=== PATIENT | male | born 1955 | race Caucasian/White ===

== ENCOUNTER 2018-11-24 17:47 | Inpatient (IN) | payer OTHER ==
[~2018-11-24] VITALS: Ht 182.8 cm; Wt 97.5 kg
--- NOTE | ~2018-11-24 | PR ---
[place], [place] PROGRESS NOTE NAME: EDMUND AARON UNIT #: [id number] ROOM: 316 DOCTOR: BOBBY TODD MD BIRTHDATE: [birth year] DOS: 11/26/2018 CHIEF COMPLAINT: "Oh Dr. Todd, the voices are so bad, I see Abel Aaron coming at me. He is telling me to kill myself." SUMMARY OF THE VISIT: The patient was interviewed in the group therapy room where he was sitting on a one-to-one basis with the nurse. He immediately began sobbing as he talked to me stating that the voices have intensified and are tormenting him. He did get relief with the p.r.n. Geodon and it did allow him to sleep more restfully, but once he woke up, the voices reoccurred at a very high level. He did request another Geodon injection to try to at least give him some relief. MENTAL STATUS: He is alert and oriented with significant depression noted and anxiety. He is grossly psychotic and experiencing command auditory hallucinations. The voices are telling him to kill himself and he fears that he will follow the voices. PLAN: At this point is to increase the Fanapt to 4 mg b.i.d. as I rapidly titrate him to therapeutic. I will go ahead and give him Geodon 20 mg IM now in an effort to give him some relief. We will support and monitor and maintain him on 1:1 at this time as he is at a substantial risk of harm to engage in individual and llanes milieu activity, returning to the least restrictive environment when psychiatrically stable. BOBBY TODD MD CM:PNTRANS [id number] BOBBY TODD MD 11/26/18 1426 interface
--- NOTE | ~2018-11-24 | PR ---
[place], [place] PROGRESS NOTE NAME: ED[facility]UND [facility]ES [id number] UNIT #: [id number] ROOM: 316 DOCTOR: BOBBY JASSO MD BIRTHDATE: [birth year] DOS: 12/01/2018 INTERVAL NOTE CHIEF COMPLAINT: "Oh Dr. Jasso, I just don't like what's happening here." SUMMARY OF THE VISIT: The patient was interviewed in the quiet room. He had been starting to walk the floor with physical therapy. He was actually out of his room, eating breakfast in the dining area, interacting with other peers. On a negative note, he reports he is upset with the shift engineer and voiced multiple complaints towards them. He did also make some valid points regarding his room being too cold and I discussed with him options that we have here on the unit to meet his needs more effectively. On a positive note, he is certainly out and about more. He was well dressed and groomed. He was more interactive. He was spontaneous. He did not seem to be outwardly as distraught. He is tolerating the current medicines well and I did not see any extrapyramidal symptoms, tardive dyskinesia, sedation or somnolence. MENTAL STATUS: He is alert and oriented. Mood does seem to be somewhat more euthymic. Affect is more appropriate. There was no jessica or hypomania. He continues to endorse positive hallucinations, but does not seem to be outwardly as distraught by them. PLAN: I will go ahead and discontinue the Fanapt. I will simultaneously increase the Clozaril from 50 mg 3 times a day to 100 mg 3 times a day. Well, I initiate Thorazine per his request at 50 mg t.i.d., monitoring for side effects, excess sedation and orthostatic blood pressure issues. I will renew his p.r.n. Ativan should he require intervention. I did discuss the case with treatment team and suggested some positive measures he can do including positive journaling to focus on positives going on rather than being negatives. We will continue to engage him in individual and llanes milieu activity, returning then to the least restrictive environment when psychiatrically stable. BOBBY JASSO MD CM:MORGAN [id number] BOBBY JASSO MD 12/02/18 0539 interface
--- NOTE | ~2018-11-24 | PR ---
[place], [place] PROGRESS NOTE NAME: [facility]UND [facility]ARES [id number] UNIT #: [id number] ROOM: 316 DOCTOR: BOBBY JASSO MD BIRTHDATE: [birth year] DOS: 11/29/2018 CHIEF COMPLAINT: "Oh, I am still feeling really bad Dr. Jasso, I don't know, I think I am getting worse." SUMMARY OF THE VISIT: The patient was interviewed as he was resting in bed. There definitely seems to be some volitional part to his symptoms. Nurses report that yesterday he had a very good day, but then awoke this morning and was once again complaining of severe auditory hallucinations, suicidal thoughts, self-injurious thoughts and a desire to end it all. On a positive note, they did report that as the day went on yesterday he was much more bright and pleasant and did sleep well. He is tolerating the current medication regimen well. I did redirect and re-support him in understanding how one gets better and did encourage him as much as possible to get out of his room and attempt to start going into more groups. MENTAL STATUS: He remains alert and oriented with some mild time gaps. Mood does seem to be still depressed with anxious overtones. He still endorses suicidal thoughts. He also endorses command auditory hallucinations. PLAN: I will go ahead and increase his hydroxyzine to 100 mg 3 times a day, increase the Remeron to 30 mg at bedtime. I will utilize Geodon in an off label use by increasing the dose outside of what is considered FDA approved, going from 80 mg b.i.d. to 80 mg t.i.d. with meals. We will monitor and support. BOBBY JASSO MD CM:PNTRANS [id number] BOBBY JASSO MD 11/30/18 0543 interface
--- NOTE | ~2018-11-24 | PR ---
[place], [place] PROGRESS NOTE NAME: EDMUND MIJARES UNIT #: [id number] ROOM: 316 DOCTOR: BOBBY JASSO MD BIRTHDATE: [birth year] DOS: 11/30/2018 CHIEF COMPLAINT: "Oh Dr. Jasso, I think I'm getting worse, something has to be done." SUMMARY OF THE VISIT: The patient was interviewed as he was sitting in the quiet room with one of the nurse's aides. He immediately began telling me how bad he feels that the voices have intensified. We talked at length as to his belief whether or not the Clozaril was beneficial and he did state that he felt that the Clozaril is one of the more effective medicines that he has taken in the past. The other effective medicine that he reported was Thorazine. I did suggest that I would make some changes and switch him back to the Clozaril gradually and utilize Thorazine as a p.r.n. MENTAL STATUS: He is alert and oriented. Mood does seem to be horribly depressed with anxious overtones and consistent suicidal and self-injurious thoughts. He also has persistent command auditory hallucinations. PLAN: I will discontinue the Geodon oral and IM, the Vistaril, start Clozaril 50 mg t.i.d., utilize Thorazine as a p.r.n. now, I may ultimately switch off the Fanapt to Thorazine straight, but will try to do this systematically. We will engage in individual and llanes milieu activity, discharging then when stable. BOBBY JASSO MD CM:PNTRANS [phone] BOBBY JASSO MD 12/01/18 0114 interface
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
--- NOTE | ~2018-11-24 | PR ---
[place], [place] PROGRESS NOTE NAME: [facility]UND [facility]ES [id number] UNIT #: [id number] ROOM: 316 DOCTOR: BOBBY TODD MD BIRTHDATE: [birth year] DOS: 12/02/2018 INTERVAL NOTE CHIEF COMPLAINT: "I'm feeling better, Dr. Todd, the voices are getting less and less." SUMMARY OF THE VISIT: The patient was interviewed as he finished walking up and down the edwards with Physical Therapy and he was sitting finishing his breakfast drinking coffee and juice. He was very happy to show me the Celtro that he had worked on yesterday and told me that he attended all the groups and was feeling much better since the medication changes. He does endorse that the voices have lessened in both frequency and intensity and when they are there, he is able to ignore them more readily. He convincingly denies medication side effects and I did not see the presence of any sedation or somnolence. He did not have dry mouth. In fact, he has the opposite. He is experiencing some hypersalivation secondary to the Clozaril. He is not noticing any lightheadedness, dizziness or any other symptoms from the rapid titration. MENTAL STATUS: He is alert and oriented. Mood does seem to be strongly trending towards euthymia. Affect is much more appropriate. He is much more engaging and spontaneous. He convincingly denies suicidal thoughts at the present time or any thoughts of self-harm. Memory for the most part is intact. PLAN: I will go ahead and increase the Thorazine now from 50 mg 3 times a day to 100 mg 3 times a day and monitor for risk, benefit. Continue to engage in individual and llanes milieu activity with the plan then to discharge back to [facility] when psychiatrically stable. BOBBY TODD MD CM:PNTRANS [phone] [id number] BOBBY TODD MD 12/03/18 0145 interface
--- NOTE | ~2018-11-24 | WRIGHTHP ---
[place], [place] PATIENT HISTORY AND PHYSICAL EXAM NAME: [id number] UNIT #: [id number] ROOM: 316 DOCTOR: BOBBY JASSO MD BIRTHDATE: [birth year] DOS: 11/25/2018 CHIEF COMPLAINT: "Oh, Dr. Jasso, I have not been doing well. I am so depressed and the voices are so bad." HISTORY OF PRESENT ILLNESS: This is a 63-year-old white male known to me from his previous stay at [facility] as well as a previous admission here to the [facility] Unit. Most recently, the patient has been residing at [facility]. The patient has decompensated significantly and notes significant depression with difficulty falling asleep, sleep continuity disturbance, tab cutter awakening, anergia, anhedonia, hopeless, helpless feelings, crying spells, inability to cope, and suicidal thoughts with a plan. The patient also endorses significant auditory hallucinations, reporting that the voices torment him throughout the day and he is not able to get any rest. Additionally, the patient has significant posttraumatic stress disorder symptomatology and is hypervigilant and experiences significant flashbacks. He is admitted now to rule out organic factors to attempt to re-stabilize on medication, returning back to [facility] when psychiatrically stable. PAST MEDICAL HISTORY: Remarkable for anemia, coronary artery disease, multiple suicide attempts, bladder cancer, benign prostatic hyperplasia, cerebrovascular disease, chronic kidney disease, COPD, seizure disorder, hypertension, gait instability, colon cancer, history of myocardial infarction, history of prostatic cancer, hyperlipidemia, obstructive and reflux uropathy, sleep apnea, osteoarthritis, peptic ulcer disease, polyneuropathy, polysubstance abuse, posttraumatic stress disorder, nicotine abuse, diabetes. SOCIAL HISTORY: The patient is a former alcohol abuser as well as a polysubstance abuser. He is also a former smoker, but quit 3 years ago. STRENGTHS: Ambulatory, good verbal skills. WEAKNESSES: Chronic mental health issues, poor coping skills. MENTAL STATUS: He is alert and oriented. Mood does seem to be overwhelmingly depressed. He is flat, blunted, and constricted. He endorses significant auditory hallucinations. He also endorses significant suicidal thoughts with a plan. There are no homicidal thoughts. Memory for the most part is intact. DIAGNOSES: Schizoaffective disorder, posttraumatic stress disorder. PLAN: I have made multiple changes in his medications discontinuing his clozapine, Latuda. I have started him on Fanapt hoping to be able to control both the auditory hallucinations, the mood lability and the posttraumatic stress disorder. This also is a drug that is more metabolically friendly and should not have a negative impact upon lipids and his sugar levels. Routine screening examination show him to have a low vitamin D level and vitamin D 50,000 international units weekly has already been initiated. His vitamin B12 level was low normal at 306. I will go ahead and treat with vitamin B12 injection [place], [place] PATIENT HISTORY AND PHYSICAL EXAM NAME: EDMUND MIJARES UNIT #: [id number] ROOM: [facility] DOCTOR: BOBBY JASSO MD BIRTHDATE: [birth year] 1000 mcg monthly. We will engage in individual and llanes milieu activity, returning then to [facility] when stable. BOBBY JASSO MD CM:HISPHYS:PATIENT HISTORY AND PHYSICAL EXAMINATION BOBBY JASOS MD 11/25/1852 interface
--- NOTE | ~2018-11-24 | PR ---
[place], [place] PROGRESS NOTE [id number] UN[facility] #: [id number] ROOM: 316 DOCTOR: BOBBY TODD MD BIRTHDATE: [birth year] DOS: 11/28/2018 CHIEF COMPLAINT: "Oh Dr. Todd, the voices are so bad, Abel Aaron is going to kill me. He wants me to kill myself. I do not trust any man, I do not even trust you, Dr. Todd." SUMMARY OF THE VISIT: The patient was interviewed as he was resting in his bed. He was visibly distraught. He did have a male BHT working with him and he pointed out that he is very afraid of him. He reports having an uneasy feeling when he interacts with most men because he is fearful that they will be like Abel Aaron. He continues to report ongoing hallucinations with overriding anxiety and poor sleep. He is tolerating the current medications well and I do not see sedation, somnolence, extrapyramidal symptoms, or tardive dyskinesia. MENTAL STATUS: He is alert and oriented. Mood does seem to be very depressed and distraught with severe anxiety. There is a great deal of command auditory hallucinations telling him to engage in self-cutting or kill himself. PLAN: I will go ahead and maximize Fanapt to 12 mg b.i.d., maintaining Geodon at 80 mg b.i.d. I will add Atarax 50 mg q.i.d. in an effort to decrease his anxiety and get ahead of his symptomatology. Continue to support and monitor, engage in individual and llanes milieu activity, returning to the least restrictive environment when psychiatrically stable. BOBBY TODD MD CM:PNTRANS [id number] BOBBY TODD MD 11/29/18 0552 interface
--- NOTE | ~2018-11-24 | PR ---
[place], [place] PROGRESS NOTE NAME: [id number] UNIT #: [id number] ROOM: 316 DOCTOR: BOBBY TODD MD BIRTHDATE: [birth year] DOS: 11/27/2018 INTERVAL NOTE CHIEF COMPLAINT: "I am getting worse, the voices are tormenting me, I can't go on like this, I can't do this any longer." SUMMARY OF THE VISIT: The patient was interviewed as he was resting in bed. He did have a nurse as a one-on-one present. The patient was very visibly upset and rocked in his bed, quite agitated. He reported to me that the voices are worsening in frequency and intensity. His sleep has been disturbed because of it. He does not want to eat or drink anything, he would just prefer to . The patient was very vehement about these beliefs. He convincingly denies medication side effects, but also convincingly reports that the medications themselves are ineffective. He did report that the p.r.n. of the Geodon is more effective than the p.r.n. of the Ativan. MENTAL STATUS: The patient is alert and oriented with some time gaps. Mood is very distraught and he is very disturbed by what is happening. He endorses multiple neurovegetative symptoms including suicidal thoughts. He also endorses significant hallucinations that are persistent, both day and night. There is no symptom suggestive of hypomania or jessica and memory for the most part is intact. PLAN: I will go ahead and increase the Fanapt to 8 mg b.i.d. I will attempt to push this a little faster to get him some relief. Since he reports that the Geodon is more effective than the Ativan and he tolerates the Geodon well, I will go ahead and augment the Fanapt at this point with Geodon 80 mg b.i.d. I do believe given the severity of his psychosis, two antipsychotics is warranted at this time. We will continue to engage in individual and llanes milieu activity, returning to the least restrictive environment when psychiatrically stable. BOBBY TODD MD CM:PNTRANS [phone] BOBBY TODD MD 11/28/18 0629 interface
--- NOTE | ~2018-11-24 | PR ---
[place], [place] PROGRESS NOTE NAME: [id number] UNIT #: [id number] ROOM: 316 DOCTOR: BOBBY JASSO MD BIRTHDATE: [birth year] DOS: 12/03/2018 INTERVAL NOTE CHIEF COMPLAINT: "I think we hit it on the head, Dr. Jasso. I feel so much better." SUMMARY OF THE VISIT: The patient was interviewed as he was getting ready in his room. He stopped and engaged in pleasant conversation with me. He reports that the voices have subsided. He is no longer feeling suicidal. He convincingly denies any medication side effects, reporting that he is sleeping well, eating well and is able to function during the day. MENTAL STATUS: He is alert and oriented to person, place and time. Mood does seem to be strongly trending towards euthymia. Affect is much more appropriate. There is no jessica or hypomania. No gross psychosis. Memory for the most part is intact. PLAN: I will maintain his current psychotropic regimen and make certain that these changes that he is stating truly do exist and persist longitudinally. We will finalize discharge plans and return back to [facility] when stable. BOBBY JASSO MD CM:PNTRANS [phone] BOBBY JASSO MD 12/04/18723 interface
[~2018-11-24 17:47] MED LIST: ASPIRIN ADULT L81 M1 PO; ASPIRIN CHEWABL81 M1 PO; ATENOLOL25 MG PO; ATIVAN1 MG PO; BISA-LAX10 MG RC; BRIN20TA PO; CLOZAPINE100 MG PO; CLOZAPINE25 MG PO; COGENTIN0.5 MG PO; DOCUPRENE100 M1 PO; DOCUSOFT-S100 MG PO; DRISDOL50000 IU PO; DULCOLAX5 MG PO; FEOSOL300 MG PO; FERROUS SULFAT325 MG PO; HUMALOG PEN100 U/ML SC; IMDUR30 MG PO; KEPPRA500 MG PO; KLONOPIN2 MG PO; LANTUS SOLOS100 U/M1 SC; LATU80TA PO; LIPITOR20 MG PO; MOM30 M1 PO; MOM30 ML PO; NICODERM C14 MG/24 H TD; NICODERM14 MG/24 H TD; NICODERM21 MG/24 H TD; NORCO 325 MG-51 TAB PO; PROTONIX40 MG PO; Phenergan25 MG PO; REMERON15 MG PO; RISPERDAL0.5 MG PO; RISPERDAL1 MG PO; THERAGRAN-M1 TA1 PO; THORAZINE PO; THORAZINE100 MG PO; TYLENOL 8 HOUR650 MG PO; TYLENOL325 M1 PO; VICO10300 PO; VITAMIN E400 IU PO; ZESTRIL,PRINIVI10 MG PO; ZOFRAN4 MG PO; ZYVOX600 MG PO
--- NOTE | 2018-11-24 20:35 | NUR ---
EDMUND MIJARES a 63 year old M admitted via wheel chair from the ADMITTING as a voluntary admission. Arrived on unit at 2034. ALLERGIES: AMOXICILLIN, CEFUROXIME, CIPROFLOXACIN, LITHIUM, AUGMENTIN, ELAVIL, ZYPREXA, TUBERCULIN TESTS, BEE POLLEN. Vital signs are: [id number] 151/90. The client signed the following forms with stated understanding: Authorization For The Release of Medical Information, Clothing List, Consent to Voluntary Admission and Hospitalization, Consent and Release Forms/Receipt of Rights, Acknowledgement of Advance Directive Information, Behavioral Health Consent Form, and Informed Consent of Medications. Admitted under the services of Dr. PEREZ DEE,[facility]. A search was conducted and hazardous articles were removed. Client was oriented to the unit. GUILLE OSORIO
[2018-11-24 20:50] VITALS: BP 151/90
[2018-11-24 21:40] VITALS: BP 151/90
[2018-11-24] MEDS ORDERED: ABILIFY20 MG PO (22:30)
[2018-11-24] MEDS ORDERED: NORVASC10 MG PO (22:32)
[2018-11-24] MEDS ORDERED: LIPITOR20 MG PO (22:34)
[2018-11-24] MEDS ORDERED: CLOPIDOGREL75 MG PO (22:37)
[2018-11-24] MEDS ORDERED: VITAMIN D50000 UNIT PO (22:40)
[2018-11-24] MEDS ORDERED: LATU120T PO (22:42)
[2018-11-24] MEDS ORDERED: MELATONIN3 MG PO (22:44)
[2018-11-24] MEDS ORDERED: OMEPRAZOLE40 MG PO (22:45)
[2018-11-24] MEDS ORDERED: REMERON30 M1 PO (22:46)
[2018-11-24] MEDS ORDERED: REMERON15 M2 PO (22:47)
[2018-11-24] MEDS ORDERED: GERI-KOT8.6 MG PO (22:48)
[2018-11-24] MEDS ORDERED: COGENTIN0.5 MG PO (22:50)
[2018-11-24] MEDS ORDERED: CARAFATE1 G1 PO (22:51)
[2018-11-24] MEDS ORDERED: GEMFIBROZIL600 MG PO (22:53)
[2018-11-24] MEDS ORDERED: LANTUS SOL100 UNIT/1 SQ (22:54)
[2018-11-24] MEDS ORDERED: Lopressor25 MG PO (22:55)
[2018-11-24] MEDS ORDERED: GABAPENTIN600 MG PO (22:56)
[2018-11-24] MEDS ORDERED: PROMETHAZINE25 M1 PO ×2 (22:58→23:11)
[2018-11-24] MEDS ORDERED: NOVOLOG FL100 UNIT/1 SQ (23:00)
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
[2018-11-24] MEDS ORDERED: ATIVAN0.5 MG PO (23:02)
[2018-11-24] MEDS ORDERED: GLUCAGON EMERGEN1 M1 IJ (23:05)
[2018-11-24] MEDS ORDERED: GLUCOSE GEL38 GM PO (23:06)
[2018-11-24] MEDS ORDERED: PERCOCET 7.5-31 EACH PO (23:08)
[2018-11-24] MEDS ORDERED: GAVILAX17 GM PO (23:10)
--- NOTE | 2018-11-24 23:37 | NUR ---
DR KRISS SORIANO UPDATED ON NEW PT. ORDER TO PLACE CONSULT UNDER DR JAMISON.
--- NOTE | 2018-11-24 23:46 | NUR ---
DR TODD UPDATED ON PT SUICIDE RISK SCORE. STATED TO KEEP Q15 MINUTE SAFEYT CHECKS, NO OTHER PRECAUTIONS NEEDED.
--- NOTE | 2018-11-24 23:49 | NUR ---
FISHING MANAGER UPDATED ON NEW PT AND SUICIDE RISK SCORE.
--- NOTE | 2018-11-25 00:20 | NUR ---
DR KRISS SORIANO ON UNIT TO ASSESS PT.
[2018-11-25 00:31] LABS: BILIRUBIN NEGATIVE (NEGATIVE); BLOOD TRACE-INTACT (NEGATIVE); CLARITY SL CLOUDY (CLEAR); COLOR YELLOW (YELLOW); GLUCOSE TRACE (NEGATIVE); KETONE NEGATIVE (NEGATIVE); LEUKO ESTERASE 1+ (NEGATIVE); NITRITE NEGATIVE (NEGATIVE); PH 6.5 (5.0-9.0); SPECIFIC GRAVITY 1.015 (1.005-1.030); UROBILINOGEN 0.2 E.U./dl (0.2-1.0)
[2018-11-25 00:53] LABS: BACTERIA 1+; WBC 21-30 wbc/hpf (0-5)
--- NOTE | 2018-11-25 01:14 | NUR ---
DR KRISS SORIANO UPDATED ON URINE RESULTS.
--- NOTE | 2018-11-25 02:39 | NUR ---
EDMUND MIJARES [id number] Please refer to the physician's history and physical for past medical history, comorbid conditions, and allergies. Diagnosis: MAJOR DEPRESSION RECURRANT SEVERE Jason Score: 22,LOW OR NO RISK WOUND DESCRIPTIONS: Patient has intact scars noted to right and left buttocks. Patient stated that these areas come and go and have been doing so since 4 years ago. Patient left heel boggy to touch. 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 Patient's right heel firm to touch. Pedal present bilaterally. No open areas noted to left or right heel at time of assessment. He stated that he wore a brace to his left foot up until about 1 year ago. Surface the patient is resting on: Proform SKIN PREVENTION RECOMMENDATION: 1. Pressure redistribution support surface as appropriate 2. Elevate heels 3. Remove boots/TEDS every shift and reapply 4. Head of bed 30 degrees as tolerated 5. Assess nutrition and hydration 6. Manage moisture 7. Avoid the use of containment devices while in bed 8. Use absorptive products on surfaces limit layers of linens on bed 9. Turn and reposition every 1-2 hours in bed and every 1 hour in chair as tolerated 10. Weight shifts every 15 minutes while up in chair 11. Offloading with pillows or device to keep heels elevated off bed 12. Monitor skin at least every shift 13. Inspect under medical devices twice a day WOUND TREATMENT RECOMMENDATIONS: Cleanse left and right buttocks with soap and water and apply hydraguard every shift and prn for soiling. Apply sureprep to bilateral heels and leave open to air. Wheelchair cushion when oob. Heel raiser pro boots while in bed.
--- NOTE | 2018-11-25 02:53 | NUR ---
25MCG FENTANYL IM GIVEN PER ORDER. DOSE WITNESSED BY 2ND RN, NADEEM DAWSON.
--- NOTE | 2018-11-25 03:15 | NUR ---
PT RESTING QUIETLY AT THIS TIME. FENTANYL IM INJECTION EFFECTIVE AT THIS TIME. WILL CONTINUE TO MONITOR EFFECTIVNESS OF PAIN MEDICATION.
--- NOTE | 2018-11-25 05:41 | NUR ---
24 HR chart check completed.
[2018-11-25 06:20] LABS: BASO % 0.5 % (0.0-1.0); EOS # 0.2 10*3/uL (0.0-0.4); HEMATOCRIT 37.4 % (42.0-52.0); HEMOGLOBIN 12.7 g/dl (14.0-18.0); LYMPH # 1.9 10*3/uL (1.3-4.4); LYMPH % 32.9 % (27.0-41.0); MEAN CELL VOLUME 83.7 fl (80.0-94.0); MEAN CORPUSCULAR HGB 28.4 pg (27.0-31.0); MEAN PLATELET VOLUME 9.3 fl (9.6-12.3); MONO # 0.4 10*3/uL (0.1-1.0); MONO % 6.9 % (3.0-9.0); NEUT # 3.2 10*3/uL (2.3-7.9); NEUT % 56.2 % (47.0-73.0); PLATELET COUNT AUTOMATED 234 10*3/uL (130-400); RED BLOOD COUNT 4.47 10*6/uL (4.50-5.90); RED CELL DISTRI WIDTH 14.6 % (0-14.5); WHITE BLOOD COUNT 5.7 10*3/uL (4.8-10.8)
--- NOTE | 2018-11-25 06:43 | NUR ---
PT SLEPT APPROXIMATELY 4 HOURS THIS SHIFT. Q15 MINUTE SAFETY CHECKS MAINTAINED.
[2018-11-25 06:52] LABS: ALBUMIN 2.9 gm/dl (3.1-4.5); CREATININE 1.75 mg/dL (0.70-1.30); POTASSIUM 4.1 mmol/L (3.5-5.1); TOTAL PROTEIN 6.8 gm/dL (6.4-8.2)
[2018-11-25 07:01] LABS: THYROID STIM HORMONE (HS) 2.03 uIU/ml (0.358-4.75)
[2018-11-25 07:17] VITALS: BP 112/66
--- NOTE | 2018-11-25 07:32 | NUR ---
PHYSICAL THERAPY Nursing screen received. PT orders also received. Thank you. Maribel Mcmahon,PT
--- NOTE | 2018-11-25 07:53 | NUR ---
Nursing screen and Occupational Therapy referral received. Thank you. Nadia Patterson OTR/L
[2018-11-25 08:00] VITALS: BP 112/66
--- NOTE | 2018-11-25 08:06 | NUR ---
ON UNIT TO ASSESS PT. UPDATED ON CURRENT LABS. STATES TO ENCOURAGE PO FLUIDS AND WILL REASSESS NEW LABS IN AM.
--- NOTE | 2018-11-25 08:15 | NUR ---
Treatment Plan meeting with Dr. Jasso, RN, AT, and Funeral Workers. Plan for discharge next week. Pt. currently at [facility].
[2018-11-25 08:33] LABS: VITAMIN D, 25-HYDROXY 28.8 ng/mL (30-100)
--- NOTE | 2018-11-25 08:45 | NUR ---
MADE AWARE OF SUICIDE RISK SCORE, STATES TO MAINTAIN PT ON Q15 MIN OBSERVATION CHECKS.
[2018-11-25 09:11] VITALS: BP 114/64
--- NOTE | 2018-11-25 09:36 | NUR ---
Dr. Rm notified of wound care recommendations.
--- NOTE | 2018-11-25 10:52 | NUR ---
FENTANYL PATCH APPLIED TO RIGHT UPPER BACK. SURESITE WINDOW PLACED OVER PATCH. WITNESSED BY 2ND NURSE.
--- NOTE | 2018-11-25 11:30 | NUR ---
UROSTOMY TO RLA CHANGED AT THIS TIME WITH 2ND RN AND 3RD RN ( NURSE) AT BEDSIDE. STOMA OVAL IN SHAPE AND BEEFY RED. AREA SURROUNDING STOMA IS WITHOUT IRRITATION OR REDNESS AND INTACT. STOMA BAG 1' 3". YELLOW TINGED MUCUS SURROUNDING STOMA. PT TOLERATED TX WELL. NEW BAG IN PLACE WITHOUT LEAKAGE NOTED.
--- NOTE | 2018-11-25 11:40 | NUR ---
AM GROUP/REMINISCING PT CHOSE NOT TO ATTEND MORNING GROUP THERAPY HE WAS JUST ADMITTED LAST NIGHT AND STATED, "I'M REALLY TIRED AND I DON'T LIKE TO BE AROUND PEOPLE." PT WAS ENCOURAGED TO THINK ABOUT ATTENDING AFTERNOON GROUP.
--- NOTE | 2018-11-25 11:45 | NUR ---
ASSESSMENT PT WAS COOPERATIVE WITH ASSESSMENT. PT DID STATE, "I AM HAVING SUICIDAL THOUGHTS RIGHT NOW." PT ALSO STOPPED MIDSENTENCE TO GRAB HIS HEAD AND STATE,"THE VOICES ARE TALKING TO ME RIGHT NOW" PT WAS ENCOURAGED TO FOCUS ON THE QUESTIONS AND DID SO. PT NURSE WAS NOTIFIED.
--- NOTE | 2018-11-25 14:30 | NUR ---
Spoke with [facility]. Pt. is Debubblizer care at facility and will return at discharge. Precert will be required for Pt. to return as a SNF Patient.
--- NOTE | 2018-11-25 14:32 | NUR ---
Patient not available for Occupational Therapy evaluation as he is in group therapy. Nadia Patterson OTR/L
--- NOTE | 2018-11-25 14:44 | NUR ---
PHYSICAL THERAPY PAtient at group at this time. Thank you for this referral. Maribel Mcmahon,PT
--- NOTE | 2018-11-25 15:39 | NUR ---
PM GROUP/LEISURE INTERESTS PT ATTENDED GROUP AND PARTICIPATED BY LISTENING TO AN AUDIO BIBLE ON MY PERSONAL LAPTOP. PT EXPRESSED NO H V C HALLUCINTATIONS NOR SUICIDAL IDEATIONS DURING GROUP. PT WAS TALKATIVE AND ARTICULATE.
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
--- NOTE | 2018-11-25 18:00 | NUR ---
DRESSING CHANGED TO NEPHROSTOMY TUBES TO POSTERIOR BACK. PT TOLERATED WELL. NEPHROSTOMY TUBE FLUSHED WITH 10CC NSS PER ORDERS.
--- NOTE | 2018-11-25 18:26 | NUR ---
SHIFT CHART CHECK COMPLETED.
[2018-11-25 20:00] VITALS: BP 114/67
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
--- NOTE | 2018-11-25 21:27 | NUR ---
CALLED AT NUMBER [phone], UPDATED HIM ON PATIENT STATING TO THIS NURSE DURING 1:1 THAT HE IS HAVING INCREASING VOICES OF HIS FATHER NICK MIJARES STRIKING OUT AT HIM, AND THAT HE IS CURRENTLY WANTS TO CUT HIMSELF AND HAS A PLAN TO USE WHATEVER HE CAN FIND TO DO IT. STATED TO PLACE PATIENT ON A 1:1 AND TO GIVE GEODON 20MG NOW AT 2125. NO OTHER ORDERS RECIEVED. NURSING BATCH UNIT TREATER NOTIFIED OF PATIENT BEING PLACED ON 1:1 AT THIS TIME.
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
--- NOTE | 2018-11-25 23:15 | NUR ---
GEODON 20MG IM EFFECTIVE AT THIS TIME. PATIENT SLEEPING IN BED AT THIS TIME.
--- NOTE | 2018-11-26 00:17 | NUR ---
24 HR chart check completed.
--- NOTE | 2018-11-26 04:44 | NUR ---
Recommend follow up for wound care in outpatient setting patient being discharge to another facility at this time.
--- NOTE | 2018-11-26 06:13 | NUR ---
PATIENT SLEPT >8 HOURS OF UNINTERRUPTED SLEEP THROUGHOUT SHIFT. Q 15 MINUTE CHECKS MAINTAINED
--- NOTE | 2018-11-26 07:44 | NUR ---
ON UNIT TO SEE PT AT THIS TIME.
[2018-11-26 07:45] VITALS: BP 154/76
--- NOTE | 2018-11-26 07:48 | NUR ---
PT AWAKE, ALERT, EATING BREAKFAST IN DINING ROOM WITH PEERS. 1:1 OBSERVATION CONTINUES.
--- NOTE | 2018-11-26 08:15 | NUR ---
Treatment Plan meeting with Dr. Jasso, RN, AT, and Sterile Processing Tech. Plan for discharge next week. Pt. LTC at [facility] and will return at discharge.
--- NOTE | 2018-11-26 08:15 | NUR ---
PT REMOVED SELF FROM DINING ROOM, VISIBLY UPSET AND ANXIOUS, PT STATED TO THIS NURSE AND 2ND RN, "THEY'RE TELLING ME TO DO THINGS I SHOULDN'T DO". PT TAKEN TO QUIET ROOM BY THIS NURSE. THIS NURSE SAT DOWN NEXT TO PT, OFFERED EMOTIONAL SUPPORT. PT STATES "THE VOICES ARE SO BAD, I JUST CAN'T HANDLE IT ANYMORE. I HAVE TO GET OUT OF HERE". THIS NURSE ENCOURAGED PT TO ELABORATE ON WHAT THE VOICES WERE SAYING TO HIM. PT STATES "THEY'RE TELLING ME TO KILL MYSELF. IT'S NICK BROWN. HE'S TELLING ME TO . HE'S WANTED ME ALL THESE YEARS AND I SEE HIM SITTING RIGHT OVER THERE IN THAT CHAIR BY THE DOOR. HE'S HERE NOW, HE WANTS ME TO JAB MYSELF" PT GESTURED TO HIS WRISTS. REALITY PRESENTED TO PATIENT, EMOTIONAL SUPPORT PROVIDED. 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 THEN CAME IN TO SEE PT AT THIS TIME, PT RELAYED THE ALL OF THE ABOVE TO . PT STATED GEODON GIVEN LAST NIGHT HELPED IN CALMING THE VOICES AND ALLOWED HIM TO GET SOME REST. DISCUSSED GIVING A DOSE OF GEODON IM NOW WITH PT AND PT AGREED. THIS NURSE ASSISTED PT TO HIS BEDROOM, MAINTAINING 1:1 OBSERVATION SECOND NURSE PREPARED GEODON INJECTION.
--- NOTE | 2018-11-26 08:18 | NUR ---
NEW V.O. TO GIVE GEODON 20MG IM NOW PER .
--- NOTE | 2018-11-26 08:25 | NUR ---
GEODON 20MG IM GIVEN TO RIGHT GLUTEAL MUSCLE PER THE DIRECTION OF . PT IN BED, TEARFUL, CONTINUES TO EXPRESS HEARING AND SEEING NICK MARYANA TAUNTING HIM. THIS NURSE REMAINS WITH PT 1:1 AT THIS TIME.
--- NOTE | 2018-11-26 09:07 | NUR ---
PT APPEARS VISIBLY MORE COMFORTABLE, LESS ANXIOUS AND NO LONGER TEARFUL. PT REPORTS THE VOICES HAVE DECREASED IN SEVERITY AND STATES "THEY ARE STILL THERE BUT THEY'RE NOT NEARLY BAD THERE WERE. AND I CAN STILL SEE NICK MIJARES AND EVERY ONCE IN A WHILE. I STILL FEEL LIKE THEY WANT ME TO JAB MYSELF, BUT THE MEDICINE IS HELPING". THIS NURSE REMAINS WITH PT 1:1 AT THIS TIME, PROVIDING EMOTIONAL SUPPORT AND ENCOURAGEMENT. PT STATES "THANK YOU FOR STAYING WITH ME. I'M SORRY IF I WAS MEAN EARLIER. BUT IF YOU KNEW WHAT WAS GOING ON INSIDE MY HEAD, NO ONE ELSE WOULD BE ABLE TO STAND IT EITHER".
--- NOTE | 2018-11-26 09:10 | NUR ---
PT STATES TO THIS NURSE "I FORGOT TO TELL THE DOCTOR..." AND DOZED OFF. PT AWOKE AND THIS NURSE QUESTIONED WHAT HE FORGOT TO TELL THE DOCTOR, PT STATES "I DON'T REMEMBER NOW, I'LL TELL YOU WHEN I THINK OF IT". PT THEN WENT BACK TO SLEEP.
[2018-11-26 09:33] LABS: CREATININE 1.84 mg/dL (0.70-1.30)
--- NOTE | 2018-11-26 09:43 | NUR ---
PT EASILY AROUSED VIA VERBAL STIMULI FOR ADMINISTRATION OF ROUTINE MORNING MEDICATIONS. PT STATES "OH YEAH, I BELIEVE STRONGLY IN TAKING YOUR MEDICINE WHEN IT'S DUE. THAT'S WHAT MY FOSTER MOTHER TAUGHT ME". PT TOOK MEDICATIONS WITHOUT DIFFICULTY AND RETURNED BACK TO SLEEPING. 1:1 OBSERVATION CONTINUES.
--- NOTE | 2018-11-26 10:14 | NUR ---
PT HAS BEEN SLEEPING SINCE APPROXIMATELY 909. SNORING NOTED. RESPS EASY AND EVEN ON ROOM AIR. 1:1 OBSERVATION CONTINUES.
--- NOTE | 2018-11-26 12:25 | NUR ---
IV started left hand with #22 protective cath after 2 attempts. Site prepped with Chloroprep. Sterile dressing applied. Patient tolerated procedure well. IV NORMAL SALINE infusing at 100 cc/hr. MARKUS ESQUIVEL
--- NOTE | 2018-11-26 12:30 | NUR ---
PT EXCUSED HIMSELF FROM DINING ROOM AFTER EATING LUNCH, WENT TO QUIET ROOM, THIS NURSE ACCOMPANIED PT TO MAINTAIN 1:1 OBSERVATION. PT STATES HE WAS UNABLE TO STAY IN THE DINING ROOM BECAUSE ANOTHER PT'S LOUD SPEECH WAS MAKING THE VOICES WORSE. PT STATES "THEY'RE GETTING BAD AGAIN, I'M JUST LETTING YOU KNOW". PT ALSO STATES "THESE VOICES ARE STARTING TO GIVE ME A HEADACHE". OFFERED PT TYLENOL, PT DECLINED. PT STATES "TYLENOL DOESN'T HELP. USUALLY I LISTEN TO GOSPEL MUSIC AND IT DROWNS OUT THE VOICES SO MY HEAD QUITS HURTING". THIS NURSE PROVIDED GOSPEL MUSIC FOR PT TO LISTEN TO. EFFECTIVE FOR CALMING PT. PT RESTING QUIETLY IN COUCH IN QUIET ROOM AT THIS TIME. 1:1 OBSERVATION MAINTAINED.
--- NOTE | 2018-11-26 12:51 | NUR ---
Occupational Therapy evaluation completed on 3 with full eval to follow. Precautions include left heel pain, urostomy tube,1:1 supervision, 3 North unit precautions. Recommend no further OT at this time. Thank you for this referral. Nadia Patterson OTR/L
--- NOTE | 2018-11-26 13:00 | NUR ---
IV FLUIDS HUNG AT THIS TIME PER PHYSICIAN'S ORDERS. PT TOLERATING WELL.
--- NOTE | 2018-11-26 13:37 | NUR ---
PHYSICAL THERAPY PAtient evaluated on 3, full evaluation to follow. Continue with PT as per plan of care with fall, unit three and acute debility precautions. Return to (A) living as prior. PT prn. . PAtient is high complexity via chart review, tests and evaluation: 33426. Thank you for this rerferral. Maribel Mcmahon,PT
--- NOTE | 2018-11-26 13:48 | NUR ---
PT STATES "I FEEL A LITTLE LIGHT HEADED BUT MAYBE IT'S JUST THE VOICES". VITALS: 98.2-80-18-127/77-97% ROOM AIR. NO DISTRESS NOTED. PT CONTINUES TO REST QUIETLY WITH EYES CLOSED ON COUCH IN QUIET ROOM. IVF INFUSING WITHOUT DIFFICULTY. 1:1 OBSERVATION CONTINUES.
[2018-11-26 14:20] LABS: BILIRUBIN NEGATIVE (NEGATIVE); BLOOD 2+ (NEGATIVE); CLARITY SL CLOUDY (CLEAR); COLOR YELLOW (YELLOW); GLUCOSE TRACE (NEGATIVE); KETONE NEGATIVE (NEGATIVE); LEUKO ESTERASE 2+ (NEGATIVE); NITRITE NEGATIVE (NEGATIVE); UROBILINOGEN 0.2 E.U./dl (0.2-1.0)
[2018-11-26 14:35] LABS: BACTERIA 2+; WBC 51-100 wbc/hpf (0-5); YEAST 2+
--- NOTE | 2018-11-26 16:02 | NUR ---
THIS NURSE WAS CALLED TO PT'S ROOM BY NARINDER RN WHO IS MAINTAING 1:1 OBSERVATION AT THIS TIME, PT WITH HYSTERICAL CRYING AT THIS TIME, STATES HE IS IN UNBEARABLE PAIN AT THE SITE OF HIS NEPHROSTOMY TUBE. VERIFIED THAT FENTANYL PATCH REMAINS IN PLACE TO RIGHT UPPER BACK. PT YELLED AT THIS RN "WELL, IT'S NOT WORKING! I NEED SOMETHING ELSE FOR THE PAIN!" CALL PLACED TO [phone], SPOKE TO , MADE AWARE OF THE ABOVE. STATES HE WILL REVIEW.
--- NOTE | 2018-11-26 16:15 | NUR ---
ON UNIT AND ASSESSED PT AT THIS TIME D/T PT'S C/O INCREASED PAIN/DISCOMFORT. NEPHROSTOMY TUBE FLUSHED, NEW BANDAGE APPLIED PT HAD RIPPED OFF PREVIOUS BANDAGE. NEPHROSTOMY INSERTION SITE ASSESSED, NO S/S INFECTION NOTED, SUTURES REMAIN INTACT. VISUALIZED SITE. NNO RECIEVED AT THIS TIME.
--- NOTE | 2018-11-26 16:29 | NUR ---
BEDSIDE GLUCOSE 164, PT REFUSING DINNER AT THIS TIME, OFFERED FLUIDS, PT REFUSED STATES "I'M IN TOO MUCH PAIN TO EAT". PT STATES "TIE MY ARMS DOWN SO I DON'T PULL OUT MY IV". ENCOURAGED PT TO UTILIZE OTHER STRATEGIES SUCH TIGHTLY GRAPSING PILLOW IF THE URGE TO PULL AT IV SITE ARISES AND NOTIFY RN SITING WITH HIM FOR 1:1. PT STATES "OKAY, I'LL TRY". 1:1 OBSERVATION CONTINUES.
--- NOTE | 2018-11-26 17:17 | NUR ---
PT CONTINUES TO C/O SEVERE PAIN ALL OVER, PT VISIBLY ANXIOUS, TEARFUL, STATES HE IS STILL HEARING VOICES. GAVE PRN ORDER FOR TYLENOL FOR PAIN. AT FIRST PT REFUSED TYLENOL BUT AGREED TO TRY IT NOW. PHONED UNIT, DISCUSSED WITH , AGREEABLE TO TRY PRN ATIVAN WELL AT THIS TIME IN ATTEMPT TO DECREASE ANXIETY. PRN TYLENOL 650MG PO AND PRN ATIVAN 1MG PO GIVEN AT THIS TIME FOR PAIN AND ANXIETY. PT STATES "I'M WILLING TO TRY ANYTHING AT THIS TIME, THANK YOU". WILL MONITOR FOR EFFECTIVENESS. PT CONTINUES ON 1:1 OBSERVATION.
--- NOTE | 2018-11-26 18:10 | NUR ---
CALLED TO PT ROOM BY NARINDER ENGLAND MAINTAINING 1:1 OBSERVATION PT HAS REMOVED UROSTOMY BAG AND ADHESIVE APPLIANCE HIMSELF AT THIS TIME, PT STATES "I TOOK IT OFF BECAUSE THE PAIN AND THE VOICES WON'T STOP. YOU PEOPLE WON'T HELP ME, SO I JUST TOOK IT OFF SO I CAN ". ADVISED PT THE DOCTOR HAD BEEN UP TO SEE HIM IN REGARD TO THE PAIN, REVIEWED HIS ORDERS AND GAVE TYLENOL ORDER FOR PAIN WHICH WAS GIVEN. ALSO ADVISED HE WAS GIVEN ATIVAN TO ASSIST IN DECREASING ANXIETY. NEW SUPPLIES OBTAINED TO REAPPLY UROSTOMY DEVICE, PT REFUSES TO ALLOW STAFF TO TOUCH HIM AT THIS TIME. PT EDUCATED ON RISK OF REFUSING UROSTOMY TO BE REAPPLIED. PT CONTINUES TO REFUSE TREATMENT AT THIS TIME DESPITE MULTIPLE ATTEMPTS BY DIFFERENT NURSES.
--- NOTE | 2018-11-26 18:43 | NUR ---
SHIFT CHART CHECK COMPLETED.
--- NOTE | 2018-11-26 21:59 | NUR ---
Patient anxiety increasing. Patient disconnected nephrostomy tubing and still refusing for urostomy bag to be placed. Patient refusing all oral medications and insulins at this time. Patient is yelling out and all non-pharmacological methods for reducing anxiety unsuccessful. Medicated with Ativan IM prn for increased agitation and anxiety. Will monitor effectiveness.
--- NOTE | 2018-11-26 22:40 | NUR ---
Patient continues to yell out and is attempting to pull IV out of his arm. Medicated with Geodon IM for anxiety and agitation. Will monitor effectiveness.
--- NOTE | 2018-11-27 01:28 | NUR ---
24 HR chart check completed.
--- NOTE | 2018-11-27 04:42 | NUR ---
Recommend follow up for wound care in outpatient setting patient being discharge to another facility at this time.
--- NOTE | 2018-11-27 06:12 | NUR ---
Patient slept approx. 5 hours throughout shift.
[2018-11-27 06:46] LABS: BASO % 0.6 % (0.0-1.0); EOS # 0.1 10*3/uL (0.0-0.4); EOS % 2.8 % (1.0-4.0); HEMATOCRIT 35.4 % (42.0-52.0); HEMOGLOBIN 11.7 g/dl (14.0-18.0); LYMPH # 1.5 10*3/uL (1.3-4.4); LYMPH % 30.4 % (27.0-41.0); MEAN CELL VOLUME 84.3 fl (80.0-94.0); MEAN CORPUSCULAR HGB 27.9 pg (27.0-31.0); MEAN CORPUSCULAR HGB CONC 33.1 g/dl (33.0-37.0); MEAN PLATELET VOLUME 9.5 fl (9.6-12.3); MONO # 0.3 10*3/uL (0.1-1.0); MONO % 6.5 % (3.0-9.0); NEUT % 59.3 % (47.0-73.0); PLATELET COUNT AUTOMATED 209 10*3/uL (130-400); RED CELL DISTRI WIDTH 14.8 % (0-14.5)
[2018-11-27 07:24] LABS: POTASSIUM 3.9 mmol/L (3.5-5.1)
[2018-11-27 07:35] LABS: CREATININE 1.51 mg/dL (0.70-1.30)
--- NOTE | 2018-11-27 08:00 | NUR ---
Treatment Plan meeting with Dr. Jasso, RN, AT, SW and Manuscript Editor. Plan for discharge at the end of the week. Pt. LTC at [facility] and will return at discharge.
[2018-11-27 08:01] VITALS: BP 112/84
--- NOTE | 2018-11-27 08:45 | NUR ---
PHYSICAL THERAPY Patient seen this am for therapy visit and was supine in bed upon therapist arrival. Patient had just spoken to thierry and activity staff regarding group session later this morning. This therapist was joined by [facility] thierry for observation only during entire PALLET REPAIRER visit as patient was very guarded this morning. Patient did not want to be touched and demonstrated several episodes of withdrawn behaviour. Patient transfered supine to sit EOB with SBA and able to perform seated B LE therex, all planes x 10 reps each. Patient needed both verbal / visual cues to complete all ex, followed by gait training, SBA, demonstrating very slow, antalgic gait pattern 30'x 1. Patient repeatedly stated he feels miserable with increased LE weakness / unmeasurable pain. Patient unable to ambulate to activity room and needed seated rest break in chair prior to returning to supine in bed. Patient remained in bed under [facility] nurse 1:1 Supervision. Will continue per POC as tolerated, total treatment time 17 minutes. Jeovany Robles, PALLET REPAIRER
--- NOTE | 2018-11-27 12:03 | NUR ---
AM GROUP/EXERCISE AND MUSIC PT ATTENDED GROUP FOR A FEW MINUTES BUT ABRUPTLY STATED,"I HAVE TO GET OUT OF HERE". PT WAS TAKEN OUT OF ACTIVITIES BY MILIEU AND DID NOT RETURN.
--- NOTE | 2018-11-27 13:17 | NUR ---
P: PT COMPLIANT OF PAIN TO INSERTION SITE, THREATENS SELF HARM BY PULLING OUT TUBES AND OSTOMY, ISOLATIVE, REFUSES TO GET OUT OF BED, REFUSING MEALS, VOICES NOTED, REFUSED TO LEAVE HIS ROOM I/R:: STAFF CONTINUED WITH 1:1 MONITORING PER PROTOCOL. FENTYNL PATCH LOCATED ON UPPER BACK THROUGH OUT MORNING TALKED WITH PT, HE WAS MEDICATION COMPLIANT, PT HAS NOT MADE AN ATTEMPT TO REMOVE OSTOMY OR NEPHRO DRAINAGE TUBE. AFTER PT WAS GIVEN HOC ASSISTANCE BY CHAYITO, PT AGREED TO COME TO GROUP THERAPY FOR 5 MIN WITH PERMISSION TO LEAVE AFTER THAT. PT STAYED FOR 10 MIN, THEN SAT [facility] AND WATCHED T.V. COOPERATIVE AND INTERACTIVE AT THAT TIME. PT ALSO AMBULATED DOWN THE HALLWAY WITH THIS NURSE SHORT DISTANCES. PT NOTED TO LAUGH THIS SHIFT AND COOPERATE WITH WORKING WITH OTHERS AT THIS TIME. STATES HE STILL HAS THE VOICES RANDOMLY POPPING INTO HIS HEAD IF THEY ARE YELLING, HE JUST WANTES THEM TO LEAVE HIM. P: CONTINUE TO ENCOURAGE HIM TO INTERACT WITH OTHERS AND LET STAFF KNOW WHEN HE IS FEELING OR HEARING VOICES. PT AGREED AT THIS TIME.
--- NOTE | 2018-11-27 14:41 | NUR ---
PT HAS NEGATIVE RESPONSE TOWARD VARIOUS STAFF DURING THE DAY. STATING THINGS SUCH "YOU NEED TO TALK LIKE YOU HAVE SOME COMMON SENSE" , "YOU ARE TOO LOUD, YOU KEEP WAKING ME UP WITH YOUR BANGING OF THINGS" (WHEN THE NOISE IS COMING FROM THE HALLWAY.) PT ALSO COMPLAINED IN ATTEMPT TO STAFF SPLIT AND CHOSE A PREFERENCE OF WHO IS TO SIT WITH HIM. PT HAS BEEN HYPER TALKATIVE TODAY TO THIS NURSE AND MILIEU, PLEASANT AND COOPERATIVE, AMBULATING DOWN HALLWAY AND ATTENDING GROUP THERAPY. REDIRECTED PT AWARE FROM STAFF SPLITTING BEHAVIOR AND CONTINUE WITH 1:1 PER ORDERS
--- NOTE | 2018-11-27 14:50 | NUR ---
Spoke with Shayna at [facility]. Notified of Plans to discharge at the end of next week. Clinical Updates faxed to [facility].
--- NOTE | 2018-11-27 15:44 | NUR ---
PM GROUP/ART AND MUSIC PT DID NOT ATTEND AFTERNOON GROUP THERAPY. PT SAT IN QUIET ROOM WITH MILIEU
--- NOTE | 2018-11-27 16:26 | NUR ---
PT HAS HAD RANDOM COMPLAINTS OF PAIN TO ABDOMNIN AND NEPHROSOTMY TUBE THOUGHT OUT THE DAY, ABLE TO DISTRACT FOR SHORT PERIODS REPOSITIONED FREQUENTLY WHILE HE HAS BEEN AMBULATED DOWN THE HALLWAY. PT WAS TAKEN FOR CT SCAN WITHOUT CONTRAST. UPON RESULTS DR. MAHER NOTIFIED OF RESULTS. IN WHICH HE CAME UP TO UNIT TO REVIEW PT INFORMATION. WILL CONTINUE TO MONITOR AT THIS TIME.
--- NOTE | 2018-11-27 17:04 | NUR ---
UPON REVIEW OF I&O OSTOMY BAG HAS NOT BEEN EMPTIED WITH NO OUTPUT. PT NEPHROSTOMY DRAIN HAS HAD 1260 IN OUT PUT THROUGH OUT THE DAY.
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
[2018-11-27 19:55] VITALS: BP 151/76
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
--- NOTE | 2018-11-28 00:30 | NUR ---
24 HR chart check completed.
--- NOTE | 2018-11-28 05:14 | NUR ---
Patient slept approx. 8 hours throughout shift.
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
[2018-11-28 08:03] VITALS: BP 133/61
--- NOTE | 2018-11-28 09:56 | NUR ---
OLD FENTANYL PATCH REMOVED. NEW PATCH PATCH PLACE TO RIGHT UPPER ARM. PATIENT STATED THE PATCH IS NOT WORKING, I HAVE PAIN IN THE BACK. NEPHROSTOMY TUBE ASSESS. CLEAN AND INTACT, NO SIGNS/SYMPTOMS OF INFECTION OR REDNESS. PATIENT COMPLAINS OF PAIN TO THAT SITE.
--- NOTE | 2018-11-28 10:22 | NUR ---
DR. MAHER ON UNIT TO ASSESS PATIENT. PATIENT INFORMED DOCTOR THAT THE PAIN PATCH DOES NOT EVEN WORK. PATCH REMOVED PER DOCTOR REQUEST. BOTH PATCHES DISPOSED OF IN STARPS CONTAINER WITH 2ND NURSE, RADHA QUINTANILLA, RN.
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
--- NOTE | 2018-11-28 12:16 | NUR ---
AM GROUP/MUSIC/LEISURE PT DID NOT ATTEND OR PARTICIPATE DURING GROUP BUT REMAINED IN ROOM. PT WILL CONTINUE TO BE ENCOURAGED TO ATTEND AND PARTCIPATE IN FUTURE GROUP SESSIONS.
--- NOTE | 2018-11-28 13:21 | NUR ---
DR. AQUINO UPDATED ON PATIENT'S REFUSAL TO EAT/DRINK. BLOOD SUGAR AT LUNCH TIME WAS 92, ENCOURAGED PATIENT TO EAT/DRINK. PATIENT TOOK MEDICATION WITH ORANGE JUICE.
--- NOTE | 2018-11-28 18:05 | NUR ---
Shift chart check completed.
[2018-11-28 20:00] VITALS: BP 127/75
--- NOTE | 2018-11-29 00:08 | NUR ---
PT RESTING IN BED AT 1900 AND HAS REMAINED SLEEPING AT THIS TIME. PT DID AWAKEN EASILY FOR MEDICAITION AND REQUESTED ICE PACK FOR HIS NEPHROSTOMY SITE. PT COOPERATIVE PLEASANT WITH THIS NURSE AT MEDICATION TIME. REPOSITIONED SELF IN BED, PROFO BOOTS INTACT NO COMPLAINT OF PAIN. HE REMAINED DROWSY DURING EVENING ASSESSMENT AND DENIED ALL SI AND NO REPORTS OF DELUSIONS OR VOICES NOTED. WILL CONITNUE WITH 1:1 MONITORING AT THIS TIME.
--- NOTE | 2018-11-29 05:50 | NUR ---
PT HAS SLEPT ALL SHIFT QUIETLY AND COOPERATIVE IN HIS BED. CONTINUES WITH 1:1 MONITORING. CHART CHECKS COMPLETED.
--- NOTE | 2018-11-29 05:56 | NUR ---
DRESSING INTACT TO NEPHROSTOMY SITE, PT IS CURRENTLY AWAKE AND REQUESTED ICE PACK FOR GENERAL DISCOMFORT.
[2018-11-29 07:43] VITALS: BP 136/79
--- NOTE | 2018-11-29 10:00 | NUR ---
PATIENT IS ALERT TO PERSON, REFUSED TO PARTICIPATE DURING ASSESSMENT. PATIENT BECAME IRRITABLE, DEMANDING TO SPEAK WITH DR. TODD, AFTER ALREADY BEING SEEN. MOOD IS DEPRESSED, IRRITABLE, HOPELESS/HELPLESS, LABILE. RESPONDING TO INTERNAL STIMULI. STATING HE IS HEARING VOICES TELLING HIM TO KILL HIMSELF. PATIENT WOULD NOT CONTRACT FOR SAFETY, STATING "I CAN'T DO THAT" PATIENT. CONTINUES 1:1 SUPERVISION; ONE ON ONE PROVIDED BY NURSE. UROSTOMY AND NEPHROSTOMY DRAIN TUBE IN PLACE AND DRAINING WITHOUT DIFFICULTY. 1 PERSON ASSIST WITH ACTIVITIES OF DAILY LIVING, CONTINENT OF BOWEL. PATIENT SET UP FOR MEALS, INTAKES ARE GOOD WITH ADEQUATE FLUIDS. MEDICATION COMPLAINT WITH MOST MEDICATIONS, REFUSED LANTUS INSULIN. DR TODD NOTIFIED OF SUICIDE SCORE AND INTERACTION WITH NURSE. CONTINUE TO MONITOR FOR HALLUCINATIONS, DELUSIONS, HI/SI; PROVIDE ONE ON ONE NEEDED, 1:1 SUPERVISION, ENCOURAGE PATIENT TO INTERACT AND ATTEND GROUP SESSION.
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
--- NOTE | 2018-11-29 10:40 | NUR ---
PATIENT LYING BED WITH ONE ON ONE SUPERVISION; PATIENT CURSING AND NAME CALLING OF STAFF; PATIENT REDIRECTED AT THIS TIME. CONTINUE TO MONITOR.
--- NOTE | 2018-11-29 11:11 | NUR ---
PATIENT REFUSED BLOOD SUGAR CHECK.
--- NOTE | 2018-11-29 11:30 | NUR ---
ONE ON ONE PROVIDE, MUSIC THERAPY PROVIDED. PATIENT INTERACTIVE WITH NURSE; ENCOURAGE PATIENT TO EAT LUNCH IN QUIET ROOM. PRN ATIVAN EFFECTIVE.
--- NOTE | 2018-11-29 11:53 | NUR ---
PATIENT QUIET ROOM LISTENING TO MUSIC. PATIENT ALLOWED STAFF TO CHECK BLOOD SUGAR PRIOR TO MEAL TRAY. MEAL TRAY BROUGHT TO PATIENT. FORK AND KNIFE REMOVE FROM TRAY. ROOM SERVICE NOTIFIED TO SUPPLY PATIENT WITH PAPER PRODUCT ON MEAL TRAYS WITH NO FORKS/KNIVES FOR SAFETY PRECAUTIONS.
[2018-11-29 19:55] VITALS: BP 133/72
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
--- NOTE | 2018-11-29 23:20 | NUR ---
PATIENT COMPLAINT OF HAVING A PAIN IN HIS CHEST. THIS NURSE CHECKED HIS PULSE AND EXPLAINED TO PATIENT THAT HIS PULSE WAS ELEVATED AND HE NEEDED TO CALM DOWN. PATIENT STATING IT DAVID. PATIENT MEDICATED WITH MAALOX TO HELP WITH GI DISTRESS
--- NOTE | 2018-11-29 23:45 | NUR ---
THIS NURSE CALLED TO PATIENT'S WITH PATIENT ATTEMPT TO CUT HIS WRIST. NURSING FOUND PLASTIC CAP FROM IM NEEDLE CAP. PATIENT STATING "I TOLD YOU I WAS GOING TO DO IT. LET ME BE". PATIENT'S BED AND ROOM CHECKED FOR SHARP OBJECTS. EXTRA LINEN AND GARBAGE CAN REMOVED FROM ROOM. PATIENT THREW PILLOW AT THIS NURSE. PATIENT STATING "I DIDN'T MEAN TO THROW THE PILLOW AT YOU. I CAN'T HAVE ANYTHING". PATIENT REMOVING BOOTS IN BED STATING "I DON'T WANT THESE EITHER". PATIENT REMINIDED NOT TO THROW THINGS. ATTEMPTS MADE FOR THERAPEUTIC INTERVENTIONS INEEFFECTIVE AT THIS TIME. PATIENT AGREEABLE TO TAKE TYLENOL FOR LEFT FOOT PAIN AND ATIVAN TO HELP WITH ANXIETY
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
--- NOTE | 2018-11-30 00:19 | NUR ---
PATIENT BANGING LEFT FOOT OFF BED. PATIENT STATING "WHEN I HIT THE BED IT MOVES IT AND MAKES IT FEEL BETTER. I JUST WANT TO . CASSIUS IS TELLING ME TO KILL MYSELF. I CAN'T REST WITH NICK MIJARES TRYING TO HURT ME. NOW THE MOTHERFUCKIN FOOT, THE OTHER ONE. NEUROPATHY IS A MOTHERFUCKIN KILLER. IT WON'T LET YOU DO NOTHING".
--- NOTE | 2018-11-30 00:30 | NUR ---
PATIENT ATTEMPTING TO PUT BED IN THE AIR. PATIENT STATING "I'M GOING TO GET THIS BED UP SO I CAN THROW MYSELF ON THE FLOOR". THIS NURSE UNABLE TO REDIRECT PATIENT AT THIS TIME. PATIENT DEMANDING THAT I TALK TO DR TODD AND LET DR. TODD KNOW THAT HE WANTS TO GO TO ANOTHER HOSPITAL. PATIENT STATING "I'M GETTING WORSE SINCE I CAME TO THIS HOSPITAL. THIS HOSPITAL ISN'T DOING ANYTHING FOR ME. ATIVAN, TYLENOL, AND MAALOX INEFFECTIVE AT THIS TIME.
--- NOTE | 2018-11-30 01:11 | NUR ---
PATIENT MEDICATED WITH GEODON 20MG FOR INCREASED AGITATION, YELLING AT NURSING, VULGAR LANGUAGE, ATTEMPTING TO THROW SELF ON FLOOR. GEODON EFFECTIVE AT THIS TIME. PATIENT RESTING QUIETLY IN ROOM.
--- NOTE | 2018-11-30 01:14 | NUR ---
24 HR chart check completed.
--- NOTE | 2018-11-30 06:35 | NUR ---
PATIENT SLEPT 5 HOURS OF INTERRUPTED SLEEP THROUGHOUT SHIFT. Q 15 MINUTE CHECKS MAINTAINED
--- NOTE | 2018-11-30 07:25 | NUR ---
PHYSICAL THERAPY Patient seen this am for therapy visit and was supine in bed with 1:[address] [facility] staff Supervision upon therapist arrival. Patient voices 8/10 L side head to toe pain and was very guarded. Patient states he does not want touched and prefers to do everything himself. Patient also with multiple tube drainage on person transfering supine to stand SBA. Patient ambulates with use of wh walker, slow, steady abena, SBA, demonstrating decreaed heel strike / stride this session. Patient requested to eat his breakfast in Quiet Room, totaling > 100' x 1 gait while remaining seated in quiet room chair with tray table and 1:[address] [facility] staff Supervision. Staff member also present for observation only during entire ABORIGINAL LIAISON OFFICER visit. Will continue per POC as tolerated, total treatment time 15 minutes. Jeovany Robles, ABORIGINAL LIAISON OFFICER
[2018-11-30 07:37] VITALS: BP 141/68
--- NOTE | 2018-11-30 08:48 | NUR ---
PATIENT IS ALERT TO PERSON, PLACE AND SITUATION, NOT ABLE TO RECALL DATE; ABLE TO VOICE NEEDS. MOOD IS LABILE, DEPRESSED, HOPELESS/HELPLESS, IRRITABLE. HAVING AUDITORY/VISUAL HALLUCINATIONS. "I SEE EDMUND YOU, NICK MIJARES-THAT SON OF A BITCH AND MISS DÍAZ-FOSTER MOTHER. EDMUND YOU IS TELLING ME TO KILL MYSELF. PATIENT VOICING SUICIDAL IDEATIONS: ALL MEANS ACCESSIBLE, JUMP OFF A BRIDGE, RUN INTO TRAFFIC AT DISCHARGE. PATIENT REFUSED TO CONTRACT FOR SAFETY. PATIENT WILL TAKE PSYCH MEDICATIONS ONLY, REFUSING ALL OTHER MEDICATIONS -EDUCATION PROVIDED AND STILL CONTINUES TO REFUSE. PATIENT CONTINUES ON Q 15 MINUTE SAFETY CHECKS WITH ONE ON ONE SUPERVISION, TALKS TO STAFF WITH FLIGHT OF IDEAS. 1 PERSON ASSIST WITH ACTIVITIES OF DAILY LIVING, CONTINENT OF BOWEL. NEPHRO TUBE AND UROLOTOMY DRAINING WITHOUT DIFFICULTY. SET UP FOR MEALS, PAPER PRODUCT AND SPOON PROVIDED AT MEALS FOR SAFETY PRECAUTIONS. MEAL INTAKES ARE GOOD, PATIENT UP IN QUEIT ROOM FOR BREAFAST. DR. TDOD UPDATED SI SCORE-TO CONTINUE ONE ON ONE OBSERVAITON. PATIENT INTERACTIVE WITH STAFF, ENCOURAGED PATIENT TO PARTICIPATE IN GROUP SESSION. CONTINUE TO MONITOR FOR SUICIDAL IDEATIONS AND HALLUCINATIONS; PROVIDE ONE ON ONE, 1:1 SUPERVISION, REDIRECTION, ENCOURAGE GROUP PARTICIPATION.
--- NOTE | 2018-11-30 09:10 | NUR ---
PATIENT REFUSING LAB DRAW, ONE ON ONE PROVIDED REGARDING PATIENT'S NEW ORDER OF CLOZIL AND TO NEED FOR ADDITIONAL MONITORING WITH LAB WORK. ONE ON ONE AND MEDICATION TEACHING EFFECTIVE.
[2018-11-30 09:31] LABS: BASO % 0.2 % (0.0-1.0); EOS # 0.1 10*3/uL (0.0-0.4); EOS % 1.3 % (1.0-4.0); LYMPH % 21.4 % (27.0-41.0); MONO # 0.3 10*3/uL (0.1-1.0); MONO % 6.5 % (3.0-9.0); NEUT # 3.3 10*3/uL (2.3-7.9); NEUT % 70.4 % (47.0-73.0); WHITE BLOOD COUNT 4.6 10*3/uL (4.8-10.8)
--- NOTE | 2018-11-30 11:00 | NUR ---
ON UNIT TO ASSESS PATIENT.
--- NOTE | 2018-11-30 11:52 | NUR ---
AM GROUP/EXERCISES PT ENCOURAGED TO ATTEND BUT STAES "I DONT GO TO THAT ROOM BECAUSE THERE ARE PEOPLE IN THERE" THIS STAFF STATES "IF YOU CHANGE YOUR MIND WE WILL BE THERE UNTIL 11:30"PT NEVER SHOWED TO GROUP BUT WILL CONTINUE TO BE ENCOURAGED TO ATTEND AND PARTICIPATE IN FUTURE GROUP SESSIONS.
--- NOTE | 2018-11-30 11:58 | NUR ---
ANDERSON FROM [facility] ON UNIT TO ASSESS PATIENT.
--- NOTE | 2018-11-30 15:53 | NUR ---
PM GROUP/MUSIC/LEISURE SKILLS PT ATTENDED AND PARTICIPATED DURING GROUP, ALTHOUGH RELUCTANT. PT DID SOCIALIZE WITH PEERS AND STAFF AND REMAINED PLEASANT THROUGHOUT GROUP. PT WILL CONTINUE TO BE ENCOURAGED TO ATTEND AND PARTICIPATE IN FUTURE GROUP SESSIONS.
--- NOTE | 2018-11-30 16:00 | NUR ---
Clinical Updates faxed to [facility].
--- NOTE | 2018-11-30 16:18 | NUR ---
Collaborated in tx team and aftercare mtg regarding pt tx and discharge plan. Met with pt who indicated a desire to call Marifer at [facility] office with [facility] and together they called and collaborated with Marifer. Marifer indicated pt is the worst she has ever heard him. This song writer strongly encouraged pt and put firm boundaries in place as pt is displaying a lot of attention seeking behaviors and then declining or refusing care including blood sugar checks and declined thinking of coping skills other than TV and listening to music. This song writer requested Marifer get back to this song writer once she found out information on counseling for pt etc and she agreed. This song writer inquired about Marifer ever seeing pt attend to external stimuli and discussed pt trauma hx versus actual psychosis and the behavioral concerns the staff have noticed while he has been on the unit. Marifer did not seem to think pt had any behaviors but also confirmed she has never seen him attend to external stimuli. This song writer cautioned pt becoming too dependent on others and encouraging pt to work on self reliance and self advocacy skills. Pt provided excuses on why he could not attend groups and this song writer provided empathetic listening as well as evidence based psychoeducation regarding care and tx. Pt later was able to idenitfy at least 8 coping skills with this song writer's help and help in the group setting. Pt was praised and offered positive reinforcement for attending group etc. Pt indicated a desire to play solitaire as a coping skill with encouragement and cards were given to him.
[2018-11-30 20:00] VITALS: BP 132/78
--- NOTE | 2018-11-30 21:45 | NUR ---
P-HALLUCINATIONS, AGITATION. PATIENT ALERT WITH PERIODS OF CONFUSION. PATIENT WITH SHORT TERM AND HALFWAY MEMORY DEFICITS. PATIENT WITH NO RESPIRATORY DISTRESS. PATIENT DENIES SUICIDAL AND HOMICIDAL IDEATIONS AT THIS TIME. PATIENT WITH NO DELUSIONS. PATIENT WITH AUDITORY HALLUCINATIONS. PATIENT STATING "I STILL HEAR THE VOICES". I-REDIRECTION WITH 1:1 THERAPEUTIC INTERVENTIONS AND PRESENT REALITY. EDCUATE AND ENCOURAGE MEDICATION COMPLIANCE P-PATIENT MEDICATION COMPLIANT. REDIRECTION WITH 1:1 THERAPEUTIC INTERVENTIONS EFFECTIVE FOR SHORT PERIODS OF TIME. PATIENT DEMANDING THAT STAFF TAKE HIM TO HIS ROOM AND WANTING ICE TO BE PLACED ON HIS BACK. THIS NURSE OFFERED FOR ICE TO BE PLACED ON HIS BACK WHILE PATIENT WAS IN DINING AREA SO NURSING STAFF COULD PUT OTHER PATIENTS IN BED. PATIENT YELLING AT THIS NURSE STATING "THIS IS BULL SHIT. THE DAYSHIFT LET ME HAVE ICE IN MY ROOM". THIS NURSE INFORMED PATIENT THAT THE ICE WAS BEING PROVIDED TO PATIENT WHILE HE WAS IN DINING AREA UNTIL HE WENT BACK TO HIS ROOM. PATIENT AGIATED AT THIS TIME AND REMINDED ABOUT INAPPROPRIATENESS OF YELLING AND SWEARING AT STAFF. PATIENT PROVIDED NOURISHEMENT AND FLUIDS. P-CONTINUE TO ENCOURAGE MEDICATION COMPLIANCE, CONTINUE TO PRESENT REALITY, ENCOURAGE GROUP THERAPY WHILE AWAKE
--- NOTE | 2018-11-30 22:00 | NUR ---
PATIENT MEDICATED WITH TYLENOL 650MG AT HS FOR LEFT FOOT PAIN. MEDICATION EFFECTIVE AT THIS TIME
--- NOTE | 2018-11-30 22:15 | NUR ---
PATIENT AMBULATING TO ROOM WITH MINIMAL ASSISTANCE. PATIENT ASSISTED TO BATHROOM AND WITH HS CARE BY NURSING. BILATERAL HEEL TREATMENTS AND LOTION PROVIDED TO FEET. PATIENT UPSET THAT BEDROOM WAS CHECKED FOR SHARP OBJECTS AT HS. PATIENT IN ROOM STATING "IF I HAVE TO HAVE THAT BITCH TOMORROW I'M GOING TO PUNCH HER IN THE FACE". PATIENT ALSO NAME CALLING AND STATING "THE REINFORCING STEEL WORKER WIRE MESH ARE BITCHES". PATIENT REDIRECTED FROM EPISODE OF NAME CALLING, AGITATION AND AGGRESSION AT THIS TIME. PATIENT UROSTOMY AND ANTERIOR AND POSTERIOR NEPHROSTOMIES PATENT AT THIS TIME.
--- NOTE | 2018-11-30 23:48 | NUR ---
PATIENT IN ROOM TALKING TO HIMSELF AT TIMES. PATIENT STATING "I HATE CHANNEL MANAGER. THE DAY SHIFT LETS ME DO WHAT I WANT. I HATE THAT ABNER JOSEPH. I HATE THAT OTHER BIG FAT NURSE THAT IS PROBABLY HER BOSS. THEY CAN GO TO HELL. I HATE THIS [facility]. MAYBE I CAN GO TO [facility] TO GET HELP THERE". PATIENT CONTINUES TO BE 1:1 AT THIS TIME. PATIENT TALKING IN HIS ROOM AND IS NOT DISRUPTIVE TO THE UNIT AT THIS TIME.
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
--- NOTE | 2018-12-01 03:10 | NUR ---
PATIENT CONTINUING TO TALK IN ROOM. PATIENT STATING "I HATE ALL THE COLORED LIQUID PLASTIC APPLIER. I'M TURNING ALL OF THEM IN. I HATE THE FAT UTILITY PLANT OPERATIVE, SHE HAS A BIG MOUTH. I HATE THE TALL ONE WITH LONG HAIR. I HATE ALL THE COLORED LIQUID PLASTIC APPLIER STAFF". PATIENT CONTINUES WITH 1:1 SAFETY PRECAUTIONS.
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
--- NOTE | 2018-12-01 05:57 | NUR ---
PATIENT DID NOT SLEEP THROUGHOUT SHIFT. PATIENT IN ROOM STATING "I'M GOING TO KILL ALL OF THEM. I'M GOING TO PUT CAMERAS IN ALL THEIR HOMES SO I CAN WATCH THEM. I AM NOT GOING TO TAKE MEDICATION FROM CLAUS WHITE BITCH AND CLAUS BLACK BITCH WHEN THEY COME TO GIVE ME MEDICATION." PATIENT CONTINUES WITH 1:1 SAFETY PRECAUTIONS AND MAINTAINED
--- NOTE | 2018-12-01 06:07 | NUR ---
PT REFUSED MEDICATION X2 FROM THIS NURSE. PT STATED DONT EVEN BRING THAT MEDICATION IN HERE. I AM NOT TAKING IT UNTIL NEXT SHIFT. THIS NURSE EXPLAINED TO THIS PT THAT SINCE THE MEDICATION WAS OPENED THIS NURSE HAD TO WASTE THIS MEDICATION AND IT WOULD BE MARKED REFUSED. EXPLAINED TO THE PT WHAT THE MEDCICATION WAS AND PT CONTINUED TO REFUSE IT. PT REPEATING "CANT TAKE THE SHIT DONT COOK FAST FOOD IT. CANT TAKE THE SHIT DONT COOK FAST FOOD IT THEM NURSES CANT TAKE THE SHIT"
--- NOTE | 2018-12-01 06:23 | NUR ---
PT REFUSED BLOOD SUGAR CHECKS MULTIPLE TIMES. PT TELLING LINUX SYSTEMS ENGINEER THIS NURSE REFUSED TO GIVE PT AN ICE PACK AND WAS TREATED LIKE SHIT. THIS NURSE HAD LIMITED INTERACTIONS WITH THIS PATIENT DURING THIS SHIFT.
--- NOTE | 2018-12-01 06:29 | NUR ---
PT STATED "HOW COME YOU HAVE TO MAKE IT DIFFICULT" THIS NURSE REDIRECTED PT FROM ESCULATING AND WALKED TO THE OUTSIDE OF THE DININGROOM TO AVOID CONFLICT. PT YELLED OUT AT THIS NURSE "FUCKING BITCH". PT ASKED FOR PAPER AND PENCILS AND WAS PROVIDED WITH HIS REQUESTS. 1:1 CONTINUES AT THIS TIME.
--- NOTE | 2018-12-01 06:37 | NUR ---
PT REQUESTED A DRINK. APPROACHED PT AGAIN TO CHECK BLOOD SUGAR AND PT STATED YOUR NOT CHECKING IT BUT SHE CAN AND POINTED TO MILIEU THERAPIST. MILIEU THERAPIST CHECKED BLOOD SUGAR AT THIS TIME.
--- NOTE | 2018-12-01 06:39 | NUR ---
24 HR chart check completed.
--- NOTE | 2018-12-01 06:40 | NUR ---
PT REFUSED INSULIN FROM THIS NURSE. PT STATED HE WOULD TAKE INSULIN FROM THE NEXT SHIFT AND REFUSED WATER UNTIL HE TAKES HIS INSULIN. PT THEN STATED THE AIDE GAVE HIM A PURPLE BUMP ON HIS FINGER FROM CHECKING HIS BLOOD SUAGR. PT STATED IT LOOKS LIKE A BLISTER. REFUSING TO LET THIS NURSE ASSESS AND THIS NURSE EXPLAINED TO THE PT IT WOULD BE CHARTED SO IT CAN BE ASSESSED AT A LATER TIME.
--- NOTE | 2018-12-01 06:56 | NUR ---
PATIENT IN DINING AREA AT THIS TIME. PATIENT TALKING TO MILIEU AND ASKING ABOUT HER MEDICAL INFORMATION. PATIENT WITH PARANOIA AT THIS TIME. PATIENT ASKING MILIEU "ARE THEY GOING TO GIVE THE NEXT SHIFT REPORT THERE. I SEE THEM LOOKING AT ME". PATIENT CONTINUES TO WITH REDIRECTION WITH DIFFICULTY. PATIENT WITH INCREASED AGITATION AND WRIITING A LETTER AT THIS TIME. CONTINUES WITH 1:1 SAFETY PRECAUTIONS.
[2018-12-01 08:00] VITALS: BP 127/80
--- NOTE | 2018-12-01 08:00 | NUR ---
PHYSICAL THERAPY Patient was sitting up at table in activity room following breakfast this am upon therapist arrival. Patient was pleasant this morning and very talkative, with no inapropriate behavior noted. Several [facility] staff members were present for observation only during LIP CUTTER AND SCORER visit as patient transfers sit to stand SBA. Patient states he does not like being touched and prefers to do everything by himself. Patient remained SBA for all therapy activities this session, ambulating with use of wh walker, 60'x 2, demonstrating slow, steady abena. Patient reported increased L knee pain upon second trial and needed seated rest break to complete. Patient returned to chair in activity room and remained under [facility] staff Supervision. Will continue per POC as tolerated, total treatment time 17 minutes. Jeovany Robles, LIP CUTTER AND SCORER
--- NOTE | 2018-12-01 09:00 | NUR ---
MESSAGE LEFT FOR MATT CALZADA AT THIS TIME THAT PT REQUESTING PATIENT ADVOCATE.
--- NOTE | 2018-12-01 09:45 | NUR ---
PATIENT IN DINING ROOM, WATCHING TV. PATIENT TOLD THIS NURSE THAT HE WOULD TAKE ALL OF HIS MEDICATIONS FOR ME AND HE WOULD GET HIS INSULIN ALSO. PATIENT STATED THAT "I WAS NOT SUICIDAL LAST NIGHT, I DONT KNOW WHY THEY TOLD I WOULD BE. I JUST WAS SPEAKING THINGS, THATS ALL.". ENCOURAGED PATIENT TO BEGIN JOURNALING HIS THOUGHTS IN A POSITIVE MANNOR.
--- NOTE | 2018-12-01 10:20 | NUR ---
SENIOR CLINICAL RESEARCH ASSOCIATE NOTIFIED THIS NURSE THAT SHE CONTACTED MATT CALZADA AGAIN, MATT STATED THAT SHE WILL BE DOWN TO SPEAK WITH PATIENT.
--- NOTE | 2018-12-01 11:46 | NUR ---
AM GROUP/[employer]HOUSES PT ATTENDED AND PARTICIPATED IN GROUP BY ASSEMBLING 2 [employer]S. PT EXPRESSED NO A.V.C. HALLUCINATIONS OR SUICIDAL IDEATIONS DURING GROUP. PT WAS ANIMATED AND TALKATIVE WITH PEERS. PT STATED, "I CAN TELL THAT THE THORAZINE IS STARTING TO WORK, I DON'T HEAR THE VOICES ANYMORE"
--- NOTE | 2018-12-01 12:00 | NUR ---
Shift chart check completed.
--- NOTE | 2018-12-01 15:41 | NUR ---
PM GROUP/MEDITATION PT CAME INTO GROUP THE LAST 5 MINUTES AND STATED THAT HE HAD FALLEN ASLEEP AFTER LUNCH AND JUST WOKE UP.
--- NOTE | 2018-12-01 16:58 | NUR ---
Met with pt and offered positive reinforcment and praise as well as reviewed psychoeducation on positive psychology and gratitude. Reviewed coping skills list with journaling pages. Collaborated in tx team and aftercare mtg and another mtg with nurses regarding pt behavior and some therapeutic interventions. Called pt advocate and inquired about meeting with pt upon pt request. Met with pt and notified of pt advocate being notified and planning to visit. Pt indicated he wanted to speak with a spectrographer and this job specification writer called spectrographer office and someone came up to see pt. Pt was provided education on the role of the spectrographer versus the role of the pt advocate and verbalized understanding.
--- NOTE | 2018-12-01 17:04 | NUR ---
DR. TODD NOTIFIED OF PATIENTS ORTHOSTATIC BLOOD PRESSURES. SUPINE : 139/77 PULSE 101; SITTING : 130/85 PULSE 113; STANDING : 110/[address] TODD STATED THAT THEY WERE NOT TO BAD AND TO CONTINUE TO MONITOR EVERY SHIFT.
--- NOTE | 2018-12-01 18:07 | NUR ---
PATIENT IS ALERT AND ORIENTED X4. PATIENT STATES THAT HE STILL HEARS THE VOICES BUT DOES NOT HEAR ANY COMMAND HALLUCINATIONS AND THEY DO NOT BOTHER HIM ANYMORE. PATIENT STATED TODAY AFTER DINNER THAT HE BELIEVES THAT THE NEW MEDICINE THAT DR. TODD PUT HIM ON IS WORKING SO MUCH BETTER. PATIENT STATED SMILING "DONT I JUST LOOK SO MUCH BETTER? BECAUSE I FEEL SO MUCH BETTER". PATIENT HAS BEEN COOPERATIVE WITH CARE AND TASKS. PATIENT INTERACTING AND PARTICIPATING IN GROUP. PATIENT DENIES DELUSIONAL THOUGHT PROCESS, SUICIDAL OR HOMICIDAL IDEATION FOR THIS NURSE. PATIENT IS GOAL DIRECTED AND VERBALIZES WANTING TO GET BETTER. MEDICATION COMPLIANT WITH EDUCATION PROVIDED WITH EACH MED PASS. PATIENT ATE 100% OF ALL MEALS, DRINKING ADEQUATES AMOUT OF FLUIDS, AND NAPPING PERIODICALLY THROUGHOUT THE DAY. PATIENT DOES BECOME DEMANDING WHEN OTHER STAFF ARE TALKING WITH OTHER PATIENTS. PATIENT IS EASILY DIRECTED AND LET HIM KNOW THAT WE WILL BE RIGHT WITH HIM AFTER SPEAKING WITH OTHER PATIENTS. PATIENT DID NOT ARGUE OR GET UPSET WHEN DIRECTED. PATIENT REMAINS A LINE OF SIGHT.
--- NOTE | 2018-12-01 18:18 | NUR ---
NEPHROSTOMY TUBE FLUSHED WITH 10CC OF STERILE NORMAL SALINE. REQUESTED BY PATIENT AND DONE PER ORDER. PATIENT HAD NO COMPLAINTS OF PAIN WHEN FLUSHED. NO RESISTANCE WHEN FLUSHING PORT. NO ERRYTHMIA OR SWELLING AROUND THE SITE NOTED. DRESSINGS ALL DRY AND INTACT. NO DRAINAGE NOTED TO ANY SITES.
[2018-12-01 19:58] VITALS: BP 146/76
--- NOTE | 2018-12-01 20:02 | NUR ---
Patient refused orthostatic blood pressure at this time.
--- NOTE | 2018-12-01 21:43 | NUR ---
Patient is alert and oriented x 4. Patient states he still hears voices but is not bothered by them. No SI/HI noted at this time. Patient is medication compliant without any difficulty. Patient is line of sight observation. See [facility] flowsheet for further documentation.
--- NOTE | 2018-12-02 00:42 | NUR ---
24 HR chart check completed.
--- NOTE | 2018-12-02 05:08 | NUR ---
Patient slept approx. 8 hours throughout shift. Patient continues to be line of sight.
--- NOTE | 2018-12-02 06:15 | NUR ---
EDMUND MIJARES [id number] Please refer to the physician's history and physical for past medical history, comorbid conditions, and allergies. Diagnosis: MAJOR DEPRESSION RECURRANT SEVERE Jason Score: 22,LOW OR NO RISK WOUND DESCRIPTIONS: Patient remains to have intact scars noted to right and left buttocks. Patient's left heel remains boggy to touch. 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 Patient's right heel firm to touch. Pedal present bilaterally. No open areas noted to left or right heel at time of assessment. He stated that he wore a brace to his left foot up until about 1 year ago. Surface the patient is resting on: Proform SKIN PREVENTION RECOMMENDATION: 1. Pressure redistribution support surface as appropriate 2. Elevate heels 3. Remove boots/TEDS every shift and reapply 4. Head of bed 30 degrees as tolerated 5. Assess nutrition and hydration 6. Manage moisture 7. Avoid the use of containment devices while in bed 8. Use absorptive products on surfaces limit layers of linens on bed 9. Turn and reposition every 1-2 hours in bed and every 1 hour in chair as tolerated 10. Weight shifts every 15 minutes while up in chair 11. Offloading with pillows or device to keep heels elevated off bed 12. Monitor skin at least every shift 13. Inspect under medical devices twice a day WOUND TREATMENT RECOMMENDATIONS: Contine to cleanse left and right buttocks with soap and water and apply hydraguard every shift and prn for soiling. Continue to apply sureprep to bilateral heels and leave open to air. Continue Wheelchair cushion when oob. Continue Heel raiser pro boots while in bed. Imaging studies to left foot to due pain to left heel when palpated.
--- NOTE | 2018-12-02 07:31 | NUR ---
PT AWAKE, ALERT, 2 RNS CURRENTLY WITH PT OBTAINING ORTHOSTATIC BLOOD PRESSURE READINGS.
[2018-12-02 07:32] VITALS: BP 130/47
--- NOTE | 2018-12-02 07:42 | NUR ---
WHILE OBTAIN AM VITALS, PT MADE INAPPROPRIATE STATEMENTS TO THIS NURSE ASKING WHAT KIND OF SOAP I USE BECUASE I "SMELL GOOD." PT REMINDED THIS IN NOT APPROPRIATE CONVERSATION OR BEHAVIOR WITH NO FURTHER INCIDENT. INTERACTION WITNESSED BY 2ND RN CARO.
--- NOTE | 2018-12-02 07:50 | NUR ---
P-PT VERBALIZING HE FEELS HOPELESS/HELPLESS AND DEPRESSED THIS MORNING. CONTINUES TO ATTEMPT TO SPLIT STAFF. INAPPROPRIATE DURING 1:1 CONVERSATIONS. PT STATES HE CONTINUES TO EXPERIENCE AUDITORY HALLUCINATIONS BUT THEY ARE NO LONGER TELLING HIM TO HURT/KILL HIMSELF. PT ALSO STATES HE CANNOT MAKE OUT WHAT THEY ARE SAYING TO HIM AND THAT THEY IMMEDIATELY GOT BETTER "10 MINUTES AFTER I TOOK THE CLOZARIL GAVE ME." UPDATED ON PT STATUS THIS MORNING. I-PT REMINDED HIS STATEMENTS ARE INAPPROPRIATE NEEDED. 2 STAFF MEMBERS AAT DURING PT INTERACTIONS. EMOTIONAL SUPPORT WHEN NEEDED T/O THE DAY. REDIRECTION NEEDED. FIRM BOUNDARIES AND LIMIT SETTING IN PLACE. ASSESSED PT FOR ANY SIDE EFFECTS OR ADVERSE REACTIONS TO MEDICATIONS. REALITY PRESENTED RELATED TO AUDITORY HALLUCINATIONS. ORTHOSTATIC BP AND HR OBTAINED PER ORDERS AND POSITIVE. HOWEVER, PT ASYMPTOMATIC DURING ASSESSMENT. R-PT ALERT AND ORIENTED X4, MEMORY INTACT. PT REMAINS ATTENTION SEEKING AT TIMES. STATES HE NO LONGER WISHES TO HURT OR KILL HIMSELF. PT VERBALLY CONTRACTED FOR SAFETY, STATES HE WILL INFORM STAFF OF OVERWHELMING SENSORY DISTURBANCES OR FEELINGS OF SELF HARM. NO SIDE EFFECTS OR ADVERSE REACTIONS NOTED OR REPORTED BY PT. PT CONTINUES TO "HEAR VOICES" BUT STATES HE IS NOT BOTHERED BY THEM AND THEY DO NOT CAUSE HIM DISTRESS. MADE AWARE OF + ORTHOS WITH NNO. P-PER , WILL REEVALUATE LOS OBSERVATION MID DAY AND REPORT BACK TO HIM. CONTINUE TO ENCOURAGE GROUP ATTENDENCE AND PARTICIPATION. CONTINUE ABOVE MENTIONED INTERVENTIONS.
--- NOTE | 2018-12-02 08:05 | NUR ---
PHYSICAL THERAPY Patient seen this am for therapy visit and was sitting at activity room table following breakfast upon therapist arrival. [facility] staff member present for observation only during ELECTRICIAN LOCOMOTIVE visit as patient voices no new c/o's at this time. Patient also reports sleeping better last night since changing his room, stating his new room is much warmer. Patient transfers sit to stand SBA and ambulates with use wh walker, 150'x 1. 50' x 1, SBA, demonstrating steady abena, but increased fatigue, requiring seated rest break > 100 feet on first trial. Patient was pleasantly talkative this session and returned to activity room chair under [facility] staff Supervision. Will continue per POC as tolerated, total treatment time 16 minutes. Jeovany Robles, ELECTRICIAN LOCOMOTIVE
--- NOTE | 2018-12-02 09:19 | NUR ---
Treatment Plan meeting with Dr. Jasso, RN, AT, SW and Improvement Intern. Plan for discharge Friday. Pt. to return to [facility].
--- NOTE | 2018-12-02 09:57 | NUR ---
Dr. Rm notified of wound care recommendations.
--- NOTE | 2018-12-02 11:35 | NUR ---
ON UNIT TO ASSESS PT AT THIS TIME. NNO RECEIVED.
--- NOTE | 2018-12-02 11:48 | NUR ---
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 PT WAS FOCUSED AND ON TASK WHILE VERY TALKATIVE. PT EXPRESSED NO SUICIDAL IDEATIONS OR h.v.c. HALLUCINATIONS DURING GROUP NOR EXHIBITED ANY AGITATION OR AGGRESSION
--- NOTE | 2018-12-02 12:35 | NUR ---
SPOKE TO REGARDING PTS OBSERVATION LEVEL PER REQUEST TO UPDATE HIM MID DAY. PER , DOWNGRADE OBSERVATION LEVEL FROM LOS TO ROUTINE Q15 MIN CHECKS. NURSING CHEF HEAD MADE AWARE.
--- NOTE | 2018-12-02 12:36 | NUR ---
PT MADE ROOM TO BE CHANGED BACK TO 316 DUE TO BEING PLACED ON ROUTINE Q15 MIN CHECKS. EXTRA BLANKETS PROVIDED TO PT. PT AGGREED TO ROOM CHANGE WITHOUT ISSUE. WITNESSED BY 2ND RN CARO. PT NOW LAYING IN BED WITH EYES CLOSED. RESPS EASY AND EVEN ON ROOM AIR.
--- NOTE | 2018-12-02 12:37 | NUR ---
PT REQUESTED ICE PACK FOR CHRONIC BACK PAIN WHICH HE DID NOT RATE. ICE PACK GIVEN AT THIS TIME.
--- NOTE | 2018-12-02 12:45 | NUR ---
UPON APPROACHING PTS ROOM, THIS RN OBSERVED BED MODERATELY HIGH IN ELEVATION. THIS RN PROCEEDED TO DCREASE HEIGHT AND PT STATED HE PUT IT THAT WAY ON PURPOSE. THIS RN EDUCATED PT ON FALL PRECAUTION POLICY AND THAT BEDS SHOULD REMAIN IN LOW AND LOCKED POSITION AAT. PT ACCEPTED THIS ANWSER AND ALLOWED THIS RN TO ADJUST BED PROPERLY AND APPROPRIATELY.
--- NOTE | 2018-12-02 13:00 | NUR ---
ICE PACK EFFECTIVE PER PT IN RELIEVING CHRONIC BACK PAIN. PT HAS HAD NO FURTHER C/O PAIN OR DISCOMFORT.
--- NOTE | 2018-12-02 14:00 | NUR ---
PT REQUESTS FOR URINE BAGS TO BE EMPTIED FREQUENTLY WITH MINIMAL AMOUNTS OF URINE IN BAG. PT EDUCATED ON UROSTOMY AND NEPHROSTOMY CARE AND EMPTYING OF BAGS. PT ACCEPTED THIS RN'S EXPLANATION.
--- NOTE | 2018-12-02 14:24 | NUR ---
Collaborated in tx team regarding discharge plan for Friday. Met with pt and inquired about any questions for completion of therapeutic assignments and pt stated he was sleeping all day yesterday so did not complete them but he has no questions. Pt was provided positive reinforcement for selecting ideas from the coping skill list. Looked for pts blue book upon requests for a phone number for a friend however after this ad copy writer looked there was no such item. pt appeared irritated and was provided reassurance and support as well as alternative thinking strategies. Pt attended group and seemed happy for going.
--- NOTE | 2018-12-02 15:37 | NUR ---
PM GROUP/RELAXATION PT ATTENDED GROUP AND PARTICIPATED BY COLORING AND LISTENING TO RELAXING MUSIC. PT WAS QUIET AND ON TASK, FALLING ASLEEP A FEW TIMES. PT EXPRESSED NO SUICIDAL IDEATIONS NOT a.v.c. HALLUCINATIONS.
--- NOTE | 2018-12-02 17:32 | NUR ---
TREATMENT COMPLETED TO POSTERIOR NEPHROLOGY TUBE INSERTION SITE. NO S/S OF INFECTION NOTED AT SITE. PT TOELRATED WELL. NEPHROLOGY TUBES FLUSHED WITH 10CC STERILE SALINE PER ORDERS. PT TOLERATED WELL. NO STING WIPES APPLIED TO BL HEELS. PT TOLERATED WELL.
[2018-12-02 20:00] VITALS: BP 152/74
--- NOTE | 2018-12-03 00:54 | NUR ---
PATIENT WAS ASLEEP IN BED WHEN CAME ON SHIFT. PATIENT TOOK MEDICATIONS WITHOUT DIFFICULTY, EDUCATION PROVIDED WITH EACH MED. PATIENT STATED "I WILL BEHAVE BECAUSE YOU ARE MY NURSE". THIS NURSE RESPONDED BY STATING THAT HE SHOULD BEHAVE WITH EVERYONE AND THAT WE WERE ALL HERE TO HELP HIM GET BETTER. PATIENT ATE SNACK AND THEN WENT RIGHT BACK TO SLEEP. PATIENT STATES THAT HE HEARS THE VOICES BUT HE DOES NOT HAVE ANY COMMAND HALLUCINATIONS AT THIS TIME. DENIES SI OR HI. PATIENT STATES THAT HE IS SAD AT TIMES BUT STATES THAT THIS MEDICINE IS REALLY HELPING. NO DELUSIONS OR INTERACTING WITH INTERNAL STIMULI NOTED. Q15 MINUTE CHECKS MAINTAINED FOR SAFETY.
--- NOTE | 2018-12-03 00:59 | NUR ---
24 HR chart check completed.
--- NOTE | 2018-12-03 06:53 | NUR ---
PATIENT SLEPT ALL NIGHT WITH ONE AWAKENING FOR A DRINK OF WATER. Q15 MINUTE CHECKS MAINTAINED FOR SAFETY.
--- NOTE | 2018-12-03 08:00 | NUR ---
Treatment Plan meeting with Dr. Jasso, RN, AT, SW and Rn Acute. Plan for discharge Friday. Transportation arranged with [facility] to pick patient up at 4:00 p.m.
[2018-12-03 08:41] VITALS: BP 136/80
--- NOTE | 2018-12-03 11:46 | NUR ---
AM GROUP/LEISURE INTERESTS PT ATTENDED AND PARTICIPATED IN GROUP BY FINISHING THE PAINT ON HIS [employer] THAT HE BUILT YESTERDAY. PT WAS ON TASK AND FOCUSED. PT EXPRESSED NO A.V.C. HALLUCTINATIONS OR SUICIDAL IDEATIONS DURING GROUP. PT IS EXCITED TO BE DISCHARGED TOMORROW TOLD BY DR TODD
--- NOTE | 2018-12-03 12:55 | NUR ---
P-PT VERBALIZING HE ONLY FEELS MILDLY HOPELESS TODAY. DENIES ANY SUICIDAL IDEATIONS. PT STATES HE CONTINUES TO EXPERIENCE AUDITORY HALLUCINATIONS BUT THEY ARE NO LONGER TELLING HIM TO HURT/KILL HIMSELF. PT ALSO STATES HE CANNOT MAKE OUT WHAT THEY ARE SAYING. UPDATED ON PT STATUS THIS MORNING. I-EMOTIONAL SUPPORT WHEN NEEDED T/O THE DAY. FIRM BOUNDARIES AND LIMIT SETTING IN PLACE. ASSESSED PT FOR ANY SIDE EFFECTS OR ADVERSE REACTIONS TO MEDICATIONS. REALITY PRESENTED RELATED TO AUDITORY HALLUCINATIONS. R-PT ALERT AND ORIENTED X4, MEMORY INTACT. STATES HE DOES NOT WISH TO HURT OR KILL HIMSELF. PT VERBALLY CONTRACTED FOR SAFETY, STATES HE WILL INFORM STAFF OF OVERWHELMING SENSORYDISTURBANCES OR FEELINGS OF SELF HARM. NO SIDE EFFECTS OR ADVERSE REACTIONS NOTED OR REPORTED BY PT. PT CONTINUES TO "HEAR VOICES" BUT STATES HE IS NOT BOTHERED BY THEM AND THEY DO NOT CAUSE HIM DISTRESS. P-CONTINUE TO ENCOURAGE GROUP ATTENDENCE AND PARTICIPATION. CONTINUE ABOVE MENTIONED INTERVENTIONS.
--- NOTE | 2018-12-03 13:02 | NUR ---
PHYSICAL THERAPY Patient was sleeping soundly this pm when approached for therapy visit and unavailable at this time. Will continue per POC as able. Jeovany Robles, PLANT HEALTH MANAGER
--- NOTE | 2018-12-03 14:59 | NUR ---
Collaborated with tx team and aftercare mtg regarding d/c plan. Met with pt and discussed his therapeutic assignments and provided positive reinforcement. Pt able to identify strengths and 3 positives from the day including stating that "the voices are not as bad".
--- NOTE | 2018-12-03 15:39 | NUR ---
PM GROUP/ART AND MUSIC PT ATTENDED AND PARTICIPATED IN ALL GROUP ACTIVITIES. PT EXPRESSED NO A.V.C. HALLUCINATIONS DURING GROUP. PT WAS QUIET AND ON TASK. PT WILL BE DISCHARGED FROM THE UNIT TOMORROW
--- NOTE | 2018-12-03 16:48 | NUR ---
PT CALM AND COOPERATIVE WITH STAFF. MEDICATION COMPLIANT WITHOUT DIFFICULTY. CONTINUES TO ATTEMPT TO SPLIT STAFF. REDIRECTION AND 1:1 COMPLETED DURING THESE EPISODES. PT MADE AWARE THIS IS NOT APPROPRIATE BEHAVIOR. NAPS INTERMITTENTLY T/O THE SHIFT. A&O X3, ABLE TO MAKE NEEDS AND WANTS KNOWN TO STAFF. DENIES ANY SI/HI, PLAN, OR INTENT. VERBALLY CONTRACTED FOR SAFETY. STATES HE NO LONGER FEELS OVERWHELMINGLY DEPRESSED OR DEPRESSIVE SYMPTOMS. ANXIETY LEVELS LOW. STATES " I AM SO GLAD HE [] STARTED MY ON THAT THORAZINE." POSITIVE PEER INTERACTIONS NOTED. PATIENT INDEPENDENTLY GAVE HIMSELF PARTIAL BATH IN PT ROOM. Q15 MIN OBSERVATION CHECKS PER ORDERS.
--- NOTE | 2018-12-03 17:19 | NUR ---
TREATMENT COMPLETED TO POSTERIOR NEPHROLOGY TUBE INSERTION SITE. NO S/S OF INFECTION NOTED AT SITE. PT TOELRATED WELL. NEPHROLOGY TUBES FLUSHED WITH 10CC STERILE SALINE PER ORDERS. PT TOLERATED WELL. NO STING WIPES APPLIED TO BL HEELS. NO OPEN AREAS NOTED TO BL HEELS. PT TOLERATED WELL. NO C/O PAIN OR DISCOMFORT.
--- NOTE | 2018-12-03 18:27 | NUR ---
SHIFT CHART CHECK COMPLETE.
[2018-12-03 20:00] VITALS: BP 143/77
--- NOTE | 2018-12-03 22:51 | NUR ---
Patient alert and oriented x 4. Patient admits to hearing voices but states "they no longer bother me.". Patient medication compliant without difficulty. No signs of any ST/LT memory deficits. Q 15 minute safety checks continued and maintained. See [facility] flowsheet for futher documentation.
--- NOTE | 2018-12-03 23:52 | NUR ---
24 HR chart check completed.
--- NOTE | 2018-12-04 05:47 | NUR ---
Patient slept approx. 9 hours with one awakening throughout shift. Q 15 minute safety checks continued and maintained.
[2018-12-04 07:20] VITALS: BP 139/78
--- NOTE | 2018-12-04 07:20 | NUR ---
PHYSICAL THERAPY Patient seen this am for therapy visit and was sitting at activity room table upon therapist arrival. OT podiatry assistant was present for observation only during DRY MOLDER visit as patient voices no c/o's pain. Patient was pleasant this morning transfering sit to stand with Supervision and ambulates with use of wh walker, SGA, 250'x 1, demonstrating even stride with safe abena. Patient able to complete all gait this session without c/o of pain and no LOB, returning to activity room chair awaiting breakfast. Patient remained in chair under [facility] staff Supervision. Will continue per POC as tolerated, total treatment time 16 minutes. Jeovany Robles, DRY MOLDER
[2018-12-04] MEDS ORDERED: CLOZAPINE100 MG PO (08:54)
[2018-12-04] MEDS ORDERED: B121000 MCG/1 IM (08:54)
[2018-12-04] MEDS ORDERED: MIRTAZAPINE30 M2 PO (08:54)
[2018-12-04] MEDS ORDERED: THORAZINE100 MG PO (08:54)
--- NOTE | 2018-12-04 09:50 | NUR ---
PT ALERT AND ORIENTED X4. ABLE TO MAKE NEEDS AND WANTS KNOWN TO STAFF. CONVINCINGLY DENIES ANY SI, PLAN, INTENT. MOOD IS STABLE AND EUTHYMIC WITH APPROPRIATE AFFECT. + GROOM, DRESS, AND HYGIENE THIS SHIFT. POSITIVE PEER INTERACTIONS NOTED. MEDICATION COMPLIANT WITHOUT DIFFICULTY. APPETITE GOOD FOR MEALS. INDEPENDENTLY WASHED UP AT SINK THIS AM PER HIS REQUEST. ATTENDING AND PARTICIPATING IN GROUP THERAPY. Q15 MIN CHECKS PER ORDERS.
[2018-12-04] MEDS ORDERED: PERCOCET 7.5-31 EACH PO (10:32)
--- NOTE | 2018-12-04 10:40 | NUR ---
ON UNIT TO SEE PT AT THIS TIME, AWARE OF DISCHARGE FOR TODAY.
--- NOTE | 2018-12-04 11:52 | NUR ---
AM GROUP/SOCIALIZATION PT ATTENDED AND PARTICIPATED IN GROUP BY WORKING ON SOME ART AND BY CONVERSING WITH STAFF AND PEERS. PT EXPRESSED NO A.V.C. HALLUCINATIONS OR SUICIDAL IDEATIONS DURING GROUP. PT WILL BE DISCHARGED FROM THE UNIT THIS AFTERNOON.
--- NOTE | 2018-12-04 12:35 | NUR ---
NURSE TO NURSE GIVEN TO SUKI AT [facility] AT THIS TIME. MEDICATIONS REVIEWED. ALL QUESTIONS ANWSERED.
[2018-12-04] MEDS ORDERED: METOCLOPRAMIDE H5 M1 PO (13:10)
--- NOTE | 2018-12-04 14:00 | NUR ---
Discharge instructions reviewed with patient/facility. Patient receptive and verbalizes understanding. Follow-up care arranged. Written instructions given to patient/facility. ANTONIO HAMMONDS
--- NOTE | 2018-12-04 15:40 | NUR ---
PM GROUP/ART AND MUSIC PT WAS PRESENT FOR GROUP BUT CHOSE NOT TO PARTICIPATE. PT LEFT ROOM TO READY FOR DISCHARGE FROM THE UNIT
--- NOTE | 2018-12-04 15:56 | NUR ---
ON UNIT TO ASSESS PT.
--- NOTE | 2018-12-04 16:04 | NUR ---
collaborated in tx team regarding d/c plan and completed ppwk. Pt appeared content.
--- NOTE | 2018-12-04 16:35 | NUR ---
PT D/C BACK TO [facility] AT THIS TIME. ALL BELONGINGS AND PERSONAL ITEMS, INCLUDING LAPTOP, WENT WITH PT. PT TRANSPORTED VIA [facility].
--- NOTE | 2018-12-06 10:38 | NUR ---
PHYSICAL THERAPY CO-SIGN I approve of the Phyical Therapy notes written above. RANDAL POTTS PT
== END 2018-12-04 16:35 | disposition other institution (70) | DRG 885 ==
LOC: 3N 17:47
PROVIDERS: Internal Medicine; ADMIT Psychiatry & Neurology Psychiatry
DX: F33.3 Major depressive disorder, recurrent, severe with psychotic symptoms (principal); N17.0 Acute kidney failure with tubular necrosis; N39.0 Urinary tract infection, site not specified; F43.10 Post-traumatic stress disorder, unspecified; I25.10 Atherosclerotic heart disease of native coronary artery without angina pectoris; N40.0 Benign prostatic hyperplasia without lower urinary tract symptoms; J44.9 Chronic obstructive pulmonary disease, unspecified; N18.3 Chronic kidney disease, stage 3 (moderate); E11.22 Type 2 diabetes mellitus with diabetic chronic kidney disease; G47.33 Obstructive sleep apnea (adult) (pediatric); N13.9 Obstructive and reflux uropathy, unspecified; M15.9 Polyosteoarthritis, unspecified; K27.9 Peptic ulcer, site unspecified, unspecified as acute or chronic, without hemorrhage or perforation; R26.81 Unsteadiness on feet; G40.909 Epilepsy, unspecified, not intractable, without status epilepticus; I12.9 Hypertensive chronic kidney disease with stage 1 through stage 4 chronic kidney disease, or unspecified chronic kidney disease; E78.5 Hyperlipidemia, unspecified; E11.42 Type 2 diabetes mellitus with diabetic polyneuropathy; Z85.51 Personal history of malignant neoplasm of bladder; Z85.038 Personal history of other malignant neoplasm of large intestine; I25.2 Old myocardial infarction; Z87.11 Personal history of peptic ulcer disease; Z85.46 Personal history of malignant neoplasm of prostate; Z87.891 Personal history of nicotine dependence; I69.398 Other sequelae of cerebral infarction; Z95.0 Presence of cardiac pacemaker; Z93.6 Other artificial openings of urinary tract status; Z90.79 Acquired absence of other genital organ(s); Z82.49 Family history of ischemic heart disease and other diseases of the circulatory system; Z88.1 Allergy status to other antibiotic agents; Z88.8 Allergy status to other drugs, medicaments and biological substances; Z79.899 Other long term (current) drug therapy